=== PATIENT | male | born 1930 | race Caucasian/White ===

== ENCOUNTER → 2017-01-02 | Day surgery (SDC) | payer MEDICARE, OTHER ==
--- NOTE | 2016-12-07 15:11 | PCM.ANEPRE ---
Anesthesia Pre-Op Review Reason for Review: cardio hx Anesthesia Recommendations: Delay until Additional Data Obtain (Updated Trans- thoracic Echocardiogram) Additional Comments Consulted for chart review related to proposed cystoscopy/TURP/Chokio injection. Pt has ICD 2* 35% EF (2014 TTE) with hx of adm 2* CHF exac. Multiple comorbidities include AF/Bifascicular block, Pulm HTN (Per Echo), MR/TR, COPD 2 * Lengthy ex-tobacco Hx, Obesity (high risk STOP-BANG), Anesthetic record reviewed from 2013 CLARIBEL demonstrates patient tolerated sedative well (130mg propofol, 50 fentanyl, 1 Smita). This patient was unavailable for clinical assessment, but these aged records (> 2y old) illustrate Pt to have severe but stable disease. It would be reasonable to proceed if able to rule out functional decline, but in absence of ability to personally evaluate patient, I've requested an updated TTE to demonstrate objective function. If this study demonstrates stable disease, Pt could be considered a high risk candidate for an intermediate risk procedure. Typically, this procedure would be considered low risk, but TURP potential for fluid volume and electrolyte alteration specifically applies to this patient's Hx. Patient should be instructed to hold his coumadin x5d, which should be confirmed prior to consideration of SAB, which appears otherwise optimal given the nature of the patient's valvular incompetence which should be clarified by a more recent study. Chart Reviewed by: Tino Rachel DO Dec 07, 2016 15:11
--- NOTE | 2016-12-28 15:43 | PCM.ANEPRE ---
Anesthesia Pre-Op Review Reason for Review: cardio hx Anesthesia Recommendations: Proceed with Procedure Chart Reviewed by: Nick Bach MD Dec 28, 2016 15:42
[~2017-01-02] VITALS: Ht 167.6 cm; Wt 93.9 kg
[2017-01-02] VITALS (11 sets, daily range): BP systolic 93–154; BP diastolic 46–98; PULSE 71–90; RESP 15–23; O2SAT 92–96
[~2017-01-02] MED LIST: ALBU8.5H2 INHALATION; CARV25TA2 PO; DOCU-41 PO; Dexamethasone 4 mg/mL Inj IVPUSH PRN; ENOX100D4 IM; EPHEDrine Sulfate 50 mg/mL Inj IVPUSH PRN; HYDROmorphone 1 mg/mL Inj IVPUSH PRN; Ketamine 10 mg/mL 20 mL Inj ONE; LAN125 PO; LISI2.5T PO; Lactated Ringer's 1,000 ML IV SCH; Lactated Ringer's 500 ML IV PRN; Levofloxacin 500 mg/100 mL D5W IV ONE; MULT-1018 PO; MetoCLOpramide 5 mg/mL 2 mL Inj IVPUSH PRN; Ondansetron 2 mg/mL 2 mL Inj IVPUSH PRN; Ondansetron 2 mg/mL 2 mL Inj ONE; Phenylephrine 10,000 mCg/mL Inj IVPUSH PRN; Phenylephrine/NS 100 mCg/mL 10 mL Syringe IVPUSH ONE; Propofol 10,000 mCg/mL 20 mL Inj ONE; TORS20TA3 PO; WARF5TAB7 PO; WARF7.5T4 PO; fentaNYL-PF 50 mCg/mL 2 mL Inj IVPUSH PRN; levoFLOXacin 500 mg/100 mL D5W Premix IV ONE
--- NOTE | 2017-01-02 08:29 | PCM.HPANE ---
Patient Data Surgeon Admitting Provider: Attending Provider:Sapna Mendez MD Primary Care Physician:Haile Solis MD Other Provider:Yola Terryingham Anesthesia Reason for Visit Lower Urinary Tract Symptoms Ht/WT & BMI Height (Feet): 5 Height (Inches): 7 Weight (Kilograms): 96.8 Body Mass Index 33.00 Allergies Coded Allergies: Penicillins (Verified Allergy, Severe, Anaphylaxis, 12/26/16) Past Anesthesia History Anesthesia History: Denies:: Abnormal Airway, Anesthesia Reactions, Difficult Intubation Diabetes History Hx Diabetes?: No MRSA MRSA: No Medications Hypertension Medication: Yes Home Meds Incl Beta Elyse: Yes Reported Medications Enoxaparin Sodium 100 Mg/1 Ml Syringe Im Bid #21 01/02/17 Warfarin Sodium 7.5 Mg Tablet7.5 Mg PO mondays 30 Days Ref 0 12/26/16 Torsemide 20 Mg [id number] Mg PO DAILY 30 Days Ref 0 12/26/16 Warfarin Sodium 5 Mg Tablet5 Mg PO DAILY 30 Days Ref 0 12/26/16 Albuterol HFA (Proair HFA)8.5 Gm Hfa.aer.ad2 Puffs INHALATION Q4H PRN For Shortness of Breath #1 INHALER 12/07/16 Lisinopril 2.5 Mg Tablet2.5 Mg PO BID 30 Days Ref 0 12/07/16 Digoxin (Lanoxin)0.125 Mg Tablet0.125 Mg PO DAILY 30 Days Ref 0 12/07/16 Docusate Sodium (Colace)100 Mg [id number] Mg PO BID PRN For Constipation Ref 0 12/07/16 Carvedilol 25 Mg [id number] Mg PO BID Ref 0 12/07/16 Discontinued Reported Medications Multivitamin (Multi Vitamin Daily)1 Each Tablet1 Each PO DAILY 30 Days Ref 0 12/07/16 History History of ENT Problems?: No HEENT History: Positive for:: Cataracts (alida surgery) Hearing Problem Denies:: Abnormal Airway Difficult Intubation Dysphagia Glaucoma Sinus Problem TMJ Denture Type: None Teeth Condition: Within Normal Limits Hx of Heart Problems?: Yes Cardiovascular History: Positive for:: AICD Cardiac Surgery (ICD placement) Congestive Heart Failure (Most recent echo: EF 15/20% hx pulmonary htn) Hypertension Irregular Heartbeat Denies:: Heart Murmur Pacemaker Peripheral Vascular Hx of Respiratory Problem?: Yes Respiratory History: Positive for:: Dyspnea Denies:: Asthma COPD Oxygen Administration Pneumonia Tuberculosis Use of C-PAP Machine (pt states "did not work") Use of Inhalers / NEBS Hx Neurologic Problems?: Yes Neurological History: Denies:: CVA Headaches Multiple Sclerosis Parkinson's Disease Seizures TIA Other Neurological Pertinent: prior hx of subdural hematoma- treated approx 10 years ago at [facility] Hx of GI Problems?: No Hx of Problems?: No Male Hx: Positive for:: Prostate Problems (current admission problem) Skin History: Denies:: History Skin Disorders? 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 Blood Transfusions (unsure of ) Denies:: Blood Transfuse Reaction Hx Diabetes: No Hx Alcohol Use: NoHx Substance Use: No Smoking Status: Former Smoker Have You Smoked inLast 12 mo: Yes (one year ) Stop/Bang Treated for Sleep Apnea?: No Do You Have a CPAP Machine?: No S-Snoring: Do You Snore Loudly: Yes T-Tired: feel tired, fatigued: Yes O-Obsered: Observed not breath: No P-Blood Pressure: treated: Yes B- Body Mass Index > 35 kg/m2: No A- Age over 50: Yes N- Neck Large Circumference: No G- Gender Male: Yes LEMUEL Total Score: 5 LEMUEL Risk Assessment: High Risk, =/>3 Yes LEMUEL Category 4 OutPt Procedure: Yes Risk Assessment Category Category 1A: Patient has history of documented sleep apnea, and HAS NOT received any narcotic, sedative or anesthesia administration during this stay. Category 1B: Patient has history of documented sleep apnea, and HAS received any narcotic , sedative or anesthesia administration during this stay Category 2: Patient has SUSPECTED Obstructive Sleep Apnea, and HAS received any narcotic , sedative or anesthesia administration during this stay. Category 3: Patient has SUSPECTED Obstructive Sleep Apnea and HAS NOT received narcotic, sedative or anesthesia administration during this stay. Category 4: Outpatient in Procedural Areas with known sleep apnea or who screen positive for High Risk via the STOP/BANG questionnaire. Exam Exam General Appearance: Alert, Oriented X3, Cooperative, No Acute Distress HEENT/AIRWAY: MP 2 Lungs: Clear to Auscultation, Normal Air Movement Heart: Exam Unremarkable, Regular Rate/Rhythm, No Murmurs/Rubs/Gallops Plan Impression Patient chart reviewed, patient interviewed and anesthestic plan with risks, benefits, and alternatives discussed, and informed consent obtained. ASA Physical Status: ASA3 Severe Disease (EF 35%, ICD, co morbidities) Anesthetic Plan: GA Bene/Risks/Altern/Consents: Yes HP Complete Prior to Induction: Yes Levy Ricketts MD Jan 02, 2017 08:29 Patient chart reviewed, patient interviewed and anesthestic plan with risks, benefits, and alternatives discussed, and informed consent obtained. ASA Physical Status: ASA3 Severe Disease (EF 35%, ICD, co morbidities) Anesthetic Plan: GA Bene/Risks/Altern/Consents: Yes HP Complete Prior to Induction: Yes Levy Ricketts MD Jan 02, 2017 08:29
[2017-01-02] MEDS: Lactated Ringer's 1,000 ML IV SCH ×2 (12:41→14:35)
[2017-01-02 13:55] LABS: INR 1.1 ratio
[2017-01-02] MEDS: HYDROcodone-APAP 5-325 mg Tablet PO PRN ×2 (16:05→17:01)
--- NOTE | 2017-01-02 16:48 | OP ---
[address] [address] OPERATIVE REPORT PATIENT: LEVON RANDLE : 1930 MR#: [id number] ADMIT: 01/02/2017 JOB ID: [id number] DATE OF SURGERY: 01/02/2017 SURGEON: Sapna Mendez MD TIRE RETREADER: None. PREOPERATIVE DIAGNOSIS(ES): Lower urinary tract symptoms. POSTOPERATIVE DIAGNOSIS(ES): Lower urinary tract symptoms. PROCEDURE PERFORMED: Cystoscopy and transurethral resection of prostate. FINDINGS: 1. Trabeculated bladder. 2. Orthotopic ureteral orifices. ANESTHESIA: General. ESTIMATED BLOOD LOSS: Less than 5 mL. DRAINS: An 18-Cypriot coude catheter to the bladder. SPECIMENS: Prostate chips. COMPLICATIONS: None. CONDITION: Stable. INDICATION FOR PROCEDURE: The patient is an 86-year-old gentleman with lower urinary tract symptoms. After considering options, he wished to undergo a transurethral resection of prostate. DESCRIPTION OF PROCEDURE: After informed consent was obtained, the patient was taken to the operating room. A time-out was performed identifying correct patient, surgical site, and procedure. General anesthesia was smoothly induced. He was given intravenous antibiotics just prior to the start of the procedure. He was placed in the lithotomy position and all pressure points were identified and appropriately padded. His genitals were then prepped and draped in the usual sterile fashion. His urethra was just a touch inadequate to accommodate the 26-Cypriot resectoscope, so [place] sounds were used to dilate just the meatus. There was scant bleeding with this maneuver. The urethra appeared normal after the dilation. The resectoscope was then replaced and advanced into the bladder. The bladder was systematically inspected. The findings were aforementioned. A 24-Cypriot loop was applied to the prostate with resection commencing in piecemeal fashion with the right lobe first, then the left lobe. The prostate chips were evacuated and passed off the table to Pathology. The bladder was inspected and ureteral orifices were left as undisturbed. The prostatic urethra demonstrated excellent hemostasis on repeated examination after irrigation and drainage. Instruments were then removed from the patients body and an 18-Cypriot Coude catheter was placed into the patient's bladder and insufflated with 10 mL of sterile water and set to dependent drainage. The patient appeared to tolerate the procedure well, without apparent of complication. The patient was reversed from general anesthesia and taken to the PACU in good stable condition. MARITZA
--- NOTE | 2017-01-03 07:08 | PCM.ANEP1 ---
Post Anesthesia PACU Phase 1 Assessment Anesthetic Administered: GA Level of Alertness: Awake, talking JOSEPH's with Equal Strength: Yes Pain: No Nausea or Vomiting: No CV Function & Hydration Stable: Yes Airway Device: none Oxygen Delivery: Nasal Cannula Lungs: Clear to Auscultation, Normal Air Movement Dermatome Level: Full Sensation PACU Phase 2 Assessment Complications: No Follow up Care: No Patient Instructions Provided: N/A Levy Ricketts MD Jan 03, 2017 07:08
--- NOTE | 2017-01-07 15:08 | PATH ---
SURGICAL PATHOLOGY Attending Physician:Sapna Mendez, CASE STATUS: Signed Out PATIENT NAME: LEVON RANDLE PID: [id number] : 1930 DATE COLLECTED:01/02/2017 23:42 SPECIMEN: Prostate, Chips CLINICAL HISTORY: LOWER URINARY TRACT SYMPTOMS 1). PROSTATE CHIPS FINAL DIAGNOSIS: Prostate, Transurethral Resection of Prostate: Benign prostatic tissue. ICD10: R30.0 GROSS DESCRIPTION: The specimen is received in one formalin filled container labeled with the patient's name, sublabeled "prostate chips" and consists of multiple portions of tissue which aggregate to 2.0 x 1.0 x 0.4 CM. The specimen weighs 1 g in total. Specimen is entirely submitted in 2 cassettes. 01/03/2017ID ICD-9 CODES: CPT CODES: 1: 07120 Electronically Signed Out Karel Kingsley MD, Ph.D. [facility] Pathology [facility] [address], [place] [address] Technical component performed at [facility], [address] [place] [address] Ave[address], [place], [address]
== END | disposition home or self-care (01) ==
LOC: SAS 12:11
PROVIDERS: ATTEND Urology
DX: N40.1 Benign prostatic hyperplasia with lower urinary tract symptoms (principal); R39.15 Urgency of urination; R35.0 Frequency of micturition; I10 Essential (primary) hypertension; I48.91 Unspecified atrial fibrillation; I27.2 Other secondary pulmonary hypertension; I34.0 Nonrheumatic mitral (valve) insufficiency; M19.90 Unspecified osteoarthritis, unspecified site; I50.22 Chronic systolic (congestive) heart failure; Z89.512 Acquired absence of left leg below knee; Z87.891 Personal history of nicotine dependence; Z79.01 Long term (current) use of anticoagulants; Z95.810 Presence of automatic (implantable) cardiac defibrillator; Z96.651 Presence of right artificial knee joint
CPT/HCPCS: 36415; 52601; 85610; 88305; J2370; J2405; J2704; J7120

== ENCOUNTER 2017-01-07 22:33 | Inpatient (IN) | payer MEDICARE, OTHER ==
[~2017-01-07] VITALS: Ht 167.6 cm; Wt 92.1 kg
[~2017-01-07 22:33] MED LIST changes: -Dexamethasone 4 mg/mL Inj IVPUSH PRN; -EPHEDrine Sulfate 50 mg/mL Inj IVPUSH PRN; -HYDROmorphone 1 mg/mL Inj IVPUSH PRN; -Ketamine 10 mg/mL 20 mL Inj ONE; -Lactated Ringer's 1,000 ML IV SCH; -Lactated Ringer's 500 ML IV PRN; -Levofloxacin 500 mg/100 mL D5W IV ONE; -MULT-1018 PO; -MetoCLOpramide 5 mg/mL 2 mL Inj IVPUSH PRN; -Ondansetron 2 mg/mL 2 mL Inj IVPUSH PRN; -Ondansetron 2 mg/mL 2 mL Inj ONE; -Phenylephrine 10,000 mCg/mL Inj IVPUSH PRN; -Phenylephrine/NS 100 mCg/mL 10 mL Syringe IVPUSH ONE; -Propofol 10,000 mCg/mL 20 mL Inj ONE; -fentaNYL-PF 50 mCg/mL 2 mL Inj IVPUSH PRN; -levoFLOXacin 500 mg/100 mL D5W Premix IV ONE
[2017-01-07 22:41] VITALS: BP 132/70; PULSE 106; RESP 20; O2SAT 97
--- NOTE | 2017-01-07 22:49 | ED.REPORT ---
HPI-Abd Pain M 40 and Over Date of Service Jan 07, 2017 ED Provider: Bruce Saeed MD Pt is a 86 y/o male with a history of CHF, afib, and hypertension on Warfarin who presents to the ED via EMS c/o inability to urinate onset 5 days ago. Pt had a Paez catheter placed after TURP on 01/02/17, and has had difficulty urinating ever since. He went to [facility], but was transferred to [facility] per [facility] surgeon request. Additional symptoms include abdominal pain, nausea, and decreased appetite. He denies fever, chills, cough, or diarrhea. Nursing Notes Stated Complaint: BLOCKED CATHETER Chief Complaint: Male Abdominal Pain Nursing Notes Reviewed: Yes Allergies: Coded Allergies: Penicillins (Verified Allergy, Severe, Anaphylaxis, 12/26/16) Scheduled Carvedilol (Carvedilol) 25 Mg Tablet 25 MG PO BID Digoxin (Lanoxin) 0.125 Mg Tablet 0.125 MG PO DAILY Enoxaparin Sodium (Enoxaparin Sodium) 100 Mg/1 Ml Syringe IM BID Lisinopril (Lisinopril) 2.5 Mg Tablet 2.5 MG PO BID Torsemide (Torsemide) 20 Mg Tablet 20 MG PO DAILY Warfarin Sodium (Warfarin Sodium) 5 Mg Tablet 5 MG PO DAILY Scheduled PRN Albuterol HFA (Proair HFA) 8.5 Gm Hfa.aer.ad 2 PUFFS INHALATION Q4H PRN PRN For Shortness of Breath Docusate Sodium (Colace) 100 Mg Capsule 100 MG PO BID PRN PRN For Constipation General Time Seen by MD: 22:49 Chief Complaint Unable to urinate Hx Obtained From: Patient Arrived By: Ambulance Sudden in Onset?: No Onset Occurred: 5 days ago Context of Onset: Recent surgery Symptom Duration: Constant Quality: Painful Severity: Current: Moderate Severity: Maximum: Moderate Recent Healthcare: Recent doctor visit, Recent hospitalization Similar Sx Previous: No Past Medical History Past Medical History Prostate ICD replacement Reports: Congestive heart failure, Hypertension Reports: Atrial fibrillation Past Surgical History Auto implanted cardiovert defibrillator Right knee replacement Cancer in left knee as a child, 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 Physical Exam Initial Vital Signs Vital Signs (First) Date Time Temp Pulse Resp B/P Pulse Ox O2 Delivery O2 Flow Rate FiO2 01/07/17 22:41 36.1 106 20 132/70 97 Room Air Initial VS: Reviewed Head / Eyes: Atraumatic, Normocephalic Neck: Supple, Full range of motion Extremities: Vascular intact, Neuro intact, No swelling, No tenderness Skin: Warm, Dry, No cyanosis Neurologic: Alert, Oriented, Nonfocal Psychiatric: Mood/affect normal, Behavior normal, Normal thought content General/Constitutional: Awake, Alert Appearance / Presentation: Positive: Pale Diaphoretic Respiratory / Chest: Atraumatic, Breath sounds NL, Breath sounds = bilat, No respiratory distress Cardiovascular: Heart rate NL, Heart sounds NL Heart Rate / Rhythm: Positive: Tachycardia Abdomen: Soft Distended abdomen High-pitched bowel sounds Tenderness away from bladder Back: Full range of motion, Non-tender Interpretation & Diagnostics Lab Results Interpretation Lab Results Interpretation: Labs obtained at [facility] prior to arrival here. CT Abd / Pelvis Interpretation Large blood clot in the urinary bladder. An underlying mass is not excluded. Cholelithiasis without signs of cholecystitis. Mildly dilated proximal CBD with questionable choledocholithiasis. Colonic diverticulosis without signs of diverticulitis. Study type: Abdominal CT IV contrast Interpretation / Wet Read by: Interpret - Radiologist Re-Eval/Medical Decision Med Decision/Clinical Course 86-year-old just four days post TURP, presents with bladder pain and decreased drainage from his Paez catheter. His Paez was removed. He is unable to urinate, and it was replaced. Bladder scan shows only seventy Abbott of urine, but CT scan shows a fairly large collection in the bladder consistent with a clot. A three-way Paez was placed and he is admitted now to the medicine service for further evaluation and management. Consult to Dr. Acosta. Source of Hx: Old records Time of Eval: 02:53 Re-Evaluation/Progress Note: Pt rechecked. He is now asking for nausea medications. Time of Eval: 04:12 Re-Evaluation/Progress Note: Pt rechecked. Discussed plan for admission. Pt understands and agrees with plan. All questions addressed. Consultation #1: Referral / Consult Name: Omar Avila MD Consulted With: Hospitalist Call Returned at: 04:23 [employer] Supervisor: Will see patient, Agrees with plan, Accepts admit Note: Discussed pt's case with hospitalist, Dr. Aivla. He accepts admission. Consultation #2: Referral / Consult Name: Cesar Acosta MD Consulted With: Urology Call Returned at: 06:17 [employer] Supervisor: Will see patient, Agrees with eval, Agrees with plan Note: Discussed pt's case with urologist, Dr. Acosta. Counseled Regarding: Diagnosis, Lab results, Need for admission Discharge & Departure Primary Impression: Bladder obstruction Additional Impressions: Bladder spasm Abdominal pain Abdominal location: unspecified location Qualified Code: R10.9 - Unspecified abdominal pain Blood clot in bladder Disposition: ADMITTED TO HOSPITAL Vital Signs - All Vital Signs Date Time Temp Pulse Resp B/P Pulse Ox O2 Delivery O2 Flow Rate FiO2 01/08/17 04:19 36.5 92 21 138/92 96 Room Air 01/08/17 02:15 36.6 96 20 137/88 97 Room Air 01/08/17 00:16 36.6 96 20 120/64 97 Room Air 01/07/17 22:41 36.1 106 20 132/70 97 Room Air )( All Prior VS Reviewed: Yes Condition: Stable Referrals: Haile Solis MD (PCP) Scribe Attestation Portions of this note were transcribed by Zahira Morgan. I, Dr. Saeed, personally performed the history, physical exam and medical decision-making; I reviewed and confirmed the accuracy of the information in the transcribed note. copies to: Haile Solis MD, Christopher W MD Jan 07, 2017 22:49 Zahira Morgan Jan 08, 2017 00:38
[2017-01-08] VITALS (9 sets, daily range): BP systolic 95–138; BP diastolic 58–92; PULSE 57–102; RESP 16–21; O2SAT 95–98
[2017-01-08] MEDS ORDERED: Lidocaine 2% 6mL Topical Jelly ONE (02:33)
[2017-01-08] MEDS ORDERED: Lidocaine 2% 6mL Topical Jelly TOPICAL ONE (02:55)
[2017-01-08] MEDS ORDERED: Ondansetron 2 mg/mL 2 mL Inj IVPUSH ONE (02:55)
[2017-01-08] MEDS ORDERED: HYDROmorphone 1 mg/mL Inj IVPUSH PRN (03:30)
[2017-01-08] MEDS ORDERED: Alum-Mag Hydrox-Simeth 30 mL Suspension PO PRN (04:25)
[2017-01-08] MEDS ORDERED: Polyethylene Glycol (PEG) 17 Gm Powder PO PRN (04:25)
[2017-01-08] MEDS: 0.9% Sodium Chloride 1,000 ML IV SCH ×2 (05:53→15:20)
--- NOTE | 2017-01-08 06:18 | NUR ---
Arrival to [facility] Pt arrives via gurney, transfers self to bed. Bloody drainage present around urethra. 3 way louise with irrigation running, appears clogged by blood clots. With intermittent flushing and withdrawing clots are broken loose and louise is patent at this time, irrigation infusing, and output is light pink colored. IVF started NS as ordered. Pt is cooperative and states comfortable, no chest pain or SOB although respirations appear dyspneic. Care continues
[2017-01-08] MEDS ORDERED: HYDROmorphone 0.5 mg/0.5 mL iSecure Syringe IVPUSH PRN ×2 (07:50→10:50)
[2017-01-08] MEDS ORDERED: Albuterol HFA 60 Puff 8 Gm Inhaler INHALATION PRN (07:55)
[2017-01-08] MEDS: Ondansetron 2 mg/mL 2 mL Inj IVPUSH PRN (08:39)
[2017-01-08 09:20] LABS: Mean Corpuscular Hemoglobin 30.6 pg (27.0-35.0); Mean Corpuscular Volume 90.1 fL (81-100)
--- NOTE | 2017-01-08 09:39 | PCM.HPSURG ---
Subjective Date of Service: Jan 08, 2017 Referring Provider: Admitting Physician: Omar Avila MD Primary Care Physician: Haile Solis MD Attending Physician: Brittany Uribe DO Chief Complaint Gross hematuria, clot retention. History of Present Illness Mr Jung is a very pleasant 86 M known to me for LUTS. He is s/p TURP 01/02/17. TURP was uneventful. He was taking Coumadin, and bridged on Lovenox, which he resumed the night of surgery. He had gross hematuria yesterday in urology clinic when he presented for voiding trial. He then had worsening problems and presented to ER. - CT demonstrated distended bladder and clot within the bladder. Presently, he feels nauseated but denies pain Allergy Allergies: Coded Allergies: Penicillins (Verified Allergy, Severe, Anaphylaxis, 12/26/16) Social History Hx Alcohol Use: Yes (no longer drinks ~1 year) Hx Substance Use: No PMH HEENT History History of ENT Problems?: Yes HEENT History: Positive for:: Cataracts (alida surgery) Hearing Problem Denies:: Abnormal Airway Difficult Intubation Dysphagia Sinus Problem TMJ Cardiovascular History History of Heart Problems?: Yes Cardiovascular History: Positive for:: AICD Cardiac Surgery (ICD placement) Congestive Heart Failure (Most recent echo: EF 15/20% hx pulmonary htn) Hypertension Irregular Heartbeat Denies:: Chest Pain Edema Heart Murmur Pacemaker Thrombophlebitis Respiratory History of Respiratory Problem: No Respiratory History: Denies:: Asthma COPD Chest Surgery Dyspnea Emphysema Hemoptysis Oxygen Administration Pneumonia Tuberculosis Use of C-PAP Machine (pt states "did not work") Neurological History Hx Neurologic Problems?: No Neurological History: Denies:: CVA Headaches Multiple Sclerosis Parkinson's Disease Seizures Gastrointestinal History HX of GI Problems?: No Gastrointestinal History: Denies:: Cirrhosis Diverticulitis Gastroesphageal Reflux Gastrointestinal Bleeding Heartburn Hepatitis Hiatal Hernia Rectal Bleeding Genitourinary History Hx of Gu Problems?: No Female/Male History Reproductive History Male: Positive for: Prostate Problems (current admission problem) Skin History Skin History: Denies:: History Skin Disorders? Pressure Ulcers Other Skin Pertinent History: redness on coccyx Musculoskeletal History Hx Musculoskeletal Problems?: Yes Musculoskeletal History: Positive for:: Back Injury (chronic back pain ) Joint Replacement (Rt knee replacement) Musculoskeletal Trauma (left leg artificial ) Denies:: Systemic Lupus Psycho Social History Hx of Psycho/Social Problems?: No Other History Hx Any Other Health Problems?: Yes Other History: Positive for:: Cancer (cancer of knee, left - removed when he was a child, skin cancer) Hospitalization (surguries) Denies:: Thyroid Disease Diabetes: No Social History Hx Alcohol Use: Yes (no longer drinks ~1 year)Hx Substance Use: No Smoking Status: Former Smoker H&P Surgical Exam Exam General: Alert, Cooperative Abdomen: Soft Extremities: Warm, Other (h/o LLE amputation above the knee) Neuro: Cranial Nerves 2-12 nl (though fairly hard of hearing) Assessment & Plan Assessment Gross hematuria s/p TURP Plan: He had a 3 way louise present upon my arrival with CBI running and jara colored output in tubing. I performed a bedside clot evacuation with NS. I evacuated a volume of clot fairly consistent with that demonstrated on CT - Clots were quite soft and amenable to gentle evacuation, which he tolerated well I evacuated his bladder until there was no further clot on several irrigations/ aspirations - I monitored his CBI for several minutes after the clot evac - On a moderate paced drip, he was light pink I have spoke with his nurse Pablo today, very much appreciate her diligent surveillance over the CBI - Instructions are to titrate to pink/clear I'm hopeful his CBI could be trialed off at some point tomorrow He would go home with his louise I recommend holding his anticoag (Lovenox and Coumadin) until his louise is removed, which I suspect will be next Saturday01/14/17, though his clinical course might dictate otherwise Of note, his Cr is 2.57 - As an outpt 12/20/16, his Cr was 1.1 with eGFR >60 - It's unclear the source of his elevated Cr; if this was obstructive, it should resolve fairly quickly I would not check serial HH at this point - His blood loss is minimal presently and should improve off anticoagulation I very much appreciate Dr Uribe care of Mr Fabiana Mendez,Sapna Cevallos MD Jan 08, 2017 09:38
--- NOTE | 2017-01-08 10:00 | PCM.HPMED ---
Subjective Date of Service Jan 08, 2017 Primary Provider: Admitting Physician: Omar Avila MD Primary Care Physician: Haile Solis MD Attending Physician: Brittany Uribe DO Admit Status: Direct Admit Chief Complaint: abdominal pain, hematuria History of Present Illness: This is a 86 yo plesanat gentleman with PMH of hypertension, history of smoking for more than 50 years, HfPEF, severe LV dysfunction most likely nonischemic cardiomyopathy, chronic A. fib, history of left atrial appendage clot which got resolved on subsequent CLARIBEL, status post BIV AICD by Dr. 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 He was seen at [facility] yesterday and was seen by Dr. Gupta. He recently underwent a TURP procedure on 01/02/[address] Cano and his coumadin was subsequently restarted with enoxaparin bridging. He had a CT scan abdominopelvic in [facility] that showed diverticulosis and cholelithiasis, and hematoma. His lab work showed MA=953 K=5.1 BUN 27 Cr 1.4 ( unknown baseline) WBC 12.9 GFR 51.5 INR 1.1. He was given IV ketorolac and morphine at OSH. A CT abdomino/pelvic performed at [facility] showed large blood clot in the urinary bladder, cholelithiasis, questionable cholelithiasis, diverticulosis. Review of next gen records from Dr. Cano's office shows an Echo from , 50-55% EF, Mild to moderate MR, AR, TR, 31 mmHg pulmonary pressures. Patient states he has just seen his digital sales director Dr. Villanueva and he was told he was doing well. He currently has no nausea or vomiting, no abdominal pain. Asking to eat something as his hungry. He does endorse some constipation. Denies shortness of breath, headaches, recent fevers and chills, recent weight gain or weight loss. Patient's daughter is present in the room and provided some of the history. She intends to send patient back to his independent living setting with home care help if possible Review of Systems: Complete review of systems performed, pertinent positives and negatives per history of present illness, all other systems reviewed and are negative. Allergies Coded Allergies: Penicillins (Verified Allergy, Severe, Anaphylaxis, 12/26/16) Home Medications Coreg, digoxin, enoxaparin, lisinopril, torsemide, Coumadin, albuterol, finasteride, Detrol PMH hypertension, history of smoking for more than 50 years, HfPEF, severe LV dysfunction most likely nonischemic cardiomyopathy, chronic A. fib, history of left atrial appendage clot which got resolved on subsequent CLARIBEL, status post BIV AICD by Dr. 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 Exam Vital Signs Vital Sign - Last Date Time Temp Pulse Resp B/P Pulse Ox O2 Delivery O2 Flow Rate FiO2 01/08/17 06:24 36.9 84 18 132/77 97 Room Air Intake and Output 01/07/17 01/07/17 01/08/17 Cumulative From/Thru 15:00 23:00 07:00 01/07/17 22:41 - 01/08/17 06:24 Intake Total 200 ml 200 ml Output Total 950 ml 950 ml Balance -750 ml -750 ml Intake Oral 200 ml 200 ml Output Urine Total 950 ml 950 ml Bladder Scan Volume Amount 69 mLs # Bowel Movements 0 0 Exam General: No acute distress, elderly man, appropriately interactive, hard of hearing HEENT: Normocephalic, atraumatic. External ears without defect. Pupils equal, round, and reactive to light and accommodation. Anicteric sclerae, moist conjunctivae, and no lid lag. Oropharynx free of erythema and cobble stoning with moist mucosa. Neck: Supple with full range of motion. No jugular venous distension. No bruits. No lymphadenopathy or thyromegaly. Cardiovascular: Regular rate and rhythm with systolic murmur, no rubs, or gallops appreciated Pulmonary: Clear to auscultation bilaterally with no crackles, wheezes, or rhonchi. Normal respiratory effort with no use of accessory muscles. Abdomen: Bowel tones present. Soft, non-tender diffusely, nondistended. No hepatosplenomegaly or masses appreciated. Extremities: No clubbing, cyanosis, edema, or lymphadenopathy appreciated. Missing left lower leg Skin: Normal temperature, turgor, and texture; no rash, ulcers, or subcutaneous nodules appreciated. Neurological: Cranial nerves grossly intact. Normal muscle strength, tone, and bulk. Reflexes, coordination, and sensory function within normal limits. No known gait impairment. Hard of hearing Psychiatric: Normal mood and affect. Alert and oriented to person, place, and time. : Patient has a TV poorly with irrigation. Minimal blood present from urologists blood clots draining procedure Lab and Diagnostics X-Rays, CTs and MRIs PROCEDURE: CT ABDOMEN AND PELVIS WITH CONTRAST ([id number]) INDICATIONS: abd distension pain post turp IMPRESSION: 1. Hyperdense collection with air in the bladder as described above. Given recent history of TURP, overall appearance is suggestive of hematoma and postoperative air. Recommend continued interval followup to document resolution and exclude presence of underlying mass lesion. 2. Cholelithiasis without imaging evidence of cholecystitis. 3. Questionable appearance of iso-/hyperdensity within the distal common bile duct as above. Small stone cannot be excluded. It is noted that the common bile duct is mildly prominent measuring approximately 10 mm. MRCP may be obtained as clinically indicated. 4. Diverticulosis. Dictated by: Jadyn Knox M.D. on 01/08/2017 at 11:28 Approved by: Jadyn Knox M.D. on 01/08/2017 at 11:50 Assessment & Plan Nick is a 86-year-old white male past medical history of atrial fibrillation for which she was on Coumadin, SDH, hypertension, HFPEF, AICD placement is presenting after suffering from inability to urinate as a transfer from [facility]. #Bladder obstruction status post blood clot aspiration , resolved -- Dr. Cano was in the room draining the clot by aspirating the blood clot and irrigation. -- She does not want any anticoagulation until patient follows up with her next Saturday for uterine catheter removal -- Patient has undergone TURP on 01/02/2017 and she feels that his procedure went well. -- Continue pain control as needed #Abdominal pain resolved on admission -- Patient did not have abdominal pain on physical examination #Hyponatremia present on admission active -- Ordered urine osmolality, serum osmolality, urine sodium, TSH, serum cortisol levels to determine the etiology -- However urine test was not have been accurate as patient has been irrigated with NSS -- Every 2 hours sodium levels are monitored -- Nephrology is consulted due to diluted urine issue, we appreciate their recommendations #Acute kidney injury present on admission active -- Likely due to bladder obstruction vs home medications torsemide, lisinopril , ketorolac at OSH, possible dehydration from before causing prerenal azotemia -- There was no lab work this a.m., ordered in the room, showed a creatinine of 2.57 elevated from his outside hospital lab value of 1.4 -- Requested PCP records from Dr. Irma Reynoso to check baseline -- Uric acid, phosphorus, mag labs ordered -- Kidney ultrasound is ordered -- Nephrology is consulted due to diluted urine issue, we appreciate their recommendations #Atrial fibrillation chronic presumed stable -- Discontinued patient's at home and doxepin and Coumadin. -- Dr. Cano recommends holding all anticoagulation till she sees her for f/ u -- Continue telemonitoring #constipation, present on admission ongoing -- Senna, MiraLAX when necessary -- Consider mag citrate versus enema versus Dulcolax in the a.m. if he has no BM #Chronic ischemic cardiomyopathy active -- Continue home medications CODE STATUS: Patient states he is a full code ADM: Daughter Patient is admitted under Inpatient status with expected length of stay greater than 2 midnights due to severity of presenting symptoms, risk of adverse event, and complexity of treatment plan. Pain Evaluation: Adequate Pain Control Resuscitation Status: CPR: Attempt Resuscitation (daughter is ADM) Time spent 45 min Brittany Uribe DO Jan 08, 2017 07:40
[2017-01-08] MEDS: Tolterodine ER 4 mg ER24 Capsule PO SCH (11:22)
--- NOTE | 2017-01-08 11:52 | DRSVH ---
PROCEDURE: CT ABDOMEN AND PELVIS WITH CONTRAST ([id number]) INDICATIONS: abd distension pain post turp TECHNIQUE: After the administration of intravenous contrast, 5 mm thick sections acquired from the diaphragm to the symphysis. 5 mm coronal and sagittal reformats were acquired. For radiation dose reduction, the following was used: automated exposure control, adjustment of mA and/or kV according to patient siz e. COMPARISON: [facility], CT, IVP (ABD & PEL WWO CONTRAST), 10/08/2016, 9:32. FINDINGS: Image quality: Excellent. ABDOMEN: Lung bases: Lung bases are clear. Heart size is normal. Solid organs: Liver and spleen are normal in size and enhancement. Gallbladder demonstrates depende nt calcifications without wall thickening. There is noted to be an approximate 3 mm focus of iso-/hy perdensity within the distal common bile duct seen on series 2 image 36. There is mild prominence of the extrahepatic bile duct measuring approximately 10 mm. Pancreas enhances normally. No adrenal nod ules. Kidneys demonstrate normal size and enhancement, without hydronephrosis. Bilateral renal cyst s are present. Peritoneum and bowel: Bowel loops demonstrate normal wall thickness and caliber. No free fluid or a ir. Significant colonic diverticula are present without associated inflammatory change. Nodes and vessels: No retroperitoneal or mesenteric adenopathy by size criteria. Aorta and inferior vena cava are normal in size. 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 Miscellaneous: No ventral hernias. PELVIS: Genitourinary: Bladder wall thickness is normal. There is an approximate 7.0 cm AP by 6.6 cm transv erse hyperdense mass within the bladder, Hounsfield units measuring 57. Paez catheter is also in manasa ce. Small areas of air are also identified within the hyperdense collection. Non-dependent bladder ai r is also identified. Miscellaneous: Bilateral fat containing inguinal hernias are present. Bones: No suspicious bony lesions. No vertebral body compression fractures. IMPRESSION: 1. Hyperdense collection with air in the bladder as described above. Given recent history of TURP, ov erall appearance is suggestive of hematoma and postoperative air. Recommend continued interval follow up to document resolution and exclude presence of underlying mass lesion. 2. Cholelithiasis without imaging evidence of cholecystitis. 3. Questionable appearance of iso-/hyperdensity within the distal common bile duct as above. Small st one cannot be excluded. It is noted that the common bile duct is mildly prominent measuring approxima tely 10 mm. MRCP may be obtained as clinically indicated. 4. Diverticulosis. Dictated by: Jadyn Knox M.D. on 01/08/2017 at 11:28 Approved by: Jadyn Knox M.D. on 01/08/2017 at 11:50
--- NOTE | 2017-01-08 15:31 | NUR ---
CBI continues to run on light drip with light pink-clear urine, only very few small clots were noted in urine output over shift. Patient tolerating CBI well. Urine was not sent for osmolality and random sodium tests due to CBI running and results would be skewed. Spoke with Dr. Uribe regarding this. Patient is alert and oriented but can be confused about certain things regarding hospital course. Spoke to patient about why he was still admitted and the current plan. He acknowledges this and then minutes later tells family on the phone, 'I don't know why i'm still here.'' Continuing to reorient patient. Serum sodium levels being checked Q2H. Continue to monitor.
--- NOTE | 2017-01-08 16:06 | NUR ---
Social Work: Initial Assessment/Readiness for D/C/Multidisciplinary Rounds D: EMR reviewed. Please see Initial Assessment linked to this note for more information. Pt is a 86 year old male admitted [place] for bladder obstruction per H&P. Pt's insurance is Medicare and [employer]. PCP is Haile Solis MD. Pt discussed in multidisciplinary rounds, pt is s/p TURP. Pt is likely to d/c home with louise. No social work needs identified, no MD orders received. SW met with pt and son Nick Jung Jr at bedside to conduct initial assessment. Pt was confused, is under the impression that he is being held against his will by his children at the hospital. Is eager to return home. Was busy making calls during this entire assessment, despite attempts to reengage patient. Pt's son reports that this is not pt's baseline. RN and MD is aware as well. Pt's son states that father has no cognitive impairment, none is documented per brief chart review. SW explained role and wrote phone number on white board. SW provided [facility] Discharge Planning Checklist and encouraged pt to contact SW for any discharge planning questions. Pt's designated d/c planning contact is son Nick Jung [phone] or daughter Araceli [phone]. Pt lives at home in [place] with a live-in attendant. Pt's attendant assists with personal hygiene, meals, medications, housekeeping, and transportation. Pt is not independent with ADLs at baseline. Pt also has a nurse come twice daily to maintain pt's catheter. This is a privately paid nurse. Pt uses a cane or crutches at baseline. 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 Pt does not drive. Pt has no HH or SNF history. Pt has no VA benefits, but does have LTC benefits. Pt has no DPOA on file, SW requested copy of pt's DPOA. Son agreeable and will contact pt's other daughter Annabelle who is likely POA. Pt is likely to d/c home with son to transport via POV. Home nurse will likely resume catheter care until it's removal as an outpt. SW will continue to follow for needs. A: Pt who is dependent at baseline and does not have the capacity for self-care given his live-in attendant. P: Pt anticipated to discharge home with son to transport via POV, likely resume home nurse for catheter care until it's removal as an outpt. No SW needs identified, no MD orders received at this time. SW will continue to follow for needs until time of discharge. AVILA Resendiz Addendum: 01/08/17 at 1613 by BETZY RICHARD Amended: Links added.
[2017-01-08 17:57] LABS: Magnesium 1.7 mg/dL (1.6-2.6); Phosphorus 4.3 mg/dL (2.5-4.9)
--- NOTE | 2017-01-08 18:07 | DRSVH ---
PROCEDURE: US RENAL SONOGRAM INDICATIONS: acute renal failure TECHNIQUE: Real-time scanning was performed of the kidneys and bladder, with image documentation. COMPARISON: None. FINDINGS: Kidneys: Kidneys are normal in size. Right kidney measures 12.0 cm long; left kidney measures 11.8 cm long. Right renal cortical thickness is 0.8 cm; left renal cortical thickness is 1.0 cm. Renal c ortical echotexture is normal. No hydronephrosis or nephrolithiasis. No suspicious solid mass lesio ns. There are bilateral renal cysts. The largest right renal cyst measures 5.6 cm in diameter and th e largest left renal cyst measures 6.5 cm in diameter. Bladder: The bladder is decompressed and a Paez catheter is present. Neither ureteral jet was visua lized. Miscellaneous: No free pelvic fluid. IMPRESSION: 1. No hydronephrosis. 2. Bilateral renal cysts. 3. Right cortical thinning suggesting medical renal disease. Dictated by: Amanda Mcgovern M.D. on 01/08/2017 at 18:02 Approved by: Amanda Mcgovern M.D. on 01/08/2017 at 18:05
--- NOTE | 2017-01-08 19:12 | CONS ---
[address] [address] CONSULTATION REPORT PATIENT: LEVON RANDLE : 1930 MR#: [id number] ADMIT: 01/08/2017 JOB ID: [id number] DATE OF SERVICE: REQUESTING PHYSICIAN: Dr. Uribe. REASON FOR CONSULTATION: Management of acute kidney injury. CHIEF COMPLAINT: Gross hematuria and abdominal distention. PRESENT ILLNESS: This is an 86-year-old, male with significant past medical history of chronic atrial fibrillation, heart failure with reduced ejection fraction, last echocardiogram in November with ejection fraction of 50% to 55%, bifascicular block, status post bi-V AICD, hypertension, who was transferred from [facility] due to hematuria. The patient underwent TURP by Dr. Mendez on January 02, 2017. The procedure was uneventful. He resumed Coumadin and Lovenox on the night of the surgery. Patient came to the Urology Clinic yesterday, January 07, 2017. Paez catheter was removed. Gross hematuria noted in the clinic. He was also told to hold Coumadin and Lovenox for two days. Unfortunately symptoms persisted; therefore, he came to the [facility] for further investigation. He is also complaining of abdominal pain and difficulty urinating. CT scan was done at the [facility] on January 07. Showed distended bladder with a hyperdense mass, finding suggestive of hematoma. Also found to have diverticulosis and cholelithiasis. His initial BMP revealed creatinine of 1.4, BUN of 27, sodium of 128. Potassium 5.1. A 24-[place] Paez catheter was placed with 200 mL urine. The patient also received IV Ketoralac 30 mg and morphine 4 mg while he was at the [facility]. The patient was seen by Dr. Mendez today. She performed a bedside clot evacuation with normal saline and he was placed with continuous bladder irrigation. His initial serum creatinine was 2.57, sodium of 126. His lowest blood pressure was 95/58. During my visit at the moment, he is comfortable. He has no pain. He has watermelon-like color urine which has no clots noted in the in the Paez catheter. He has no fever, no chills. No chest pain. No shortness of breath at the moment. Of note, he has been taking lisinopril, torsemide, warfarin, digoxin, carvedilol, albuterol. PAST MEDICAL HISTORY: 1. Hypertension. 2. CHF. Recent ejection fraction was 50% to 55% in November 2016. Prior to that his ejection fraction was 35% to 40% based on echocardiogram done in September 2014. 3. Bifascicular block. 4. Cardiomyopathy. 5. Status post bi-genevieve AICD. 6. Left leg cancer status post left above-knee amputation. 7. Chronic atrial fibrillation. 8. Pulmonary hypertension. 9. Mitral regurgitation, tricuspid regurgitation. PAST SURGICAL HISTORY: 1. Status post left above-knee amputation. 2. TURP. 3. Status post bi-genevieve AICD. SOCIAL HISTORY: He is a former smoker. FAMILY HISTORY: No kidney disease in the family. ALLERGIES: PENICILLIN. REVIEW OF SYSTEMS: Fourteen-point review of system was performed. MEDICATIONS: Warfarin, torsemide, lisinopril, Lovenox, Colace, digoxin, carvedilol, and albuterol. PHYSICAL EXAMINATION: Vitals: Temperature 36.1, pulse 18, blood pressure 120/66, O2 sat 95% on room air. General appearance: Awake, alert, oriented x3. No acute distress. HEENT: No pallor. No jaundice. No JVD. No lymphadenopathy. No thyroid enlargement. Heart: Regular rhythm. Normal S1, S2. Soft systolic murmur noted. Lungs: Occasional wheezing bilaterally. No rhonchi. Good air entry bilaterally. Abdomen: Soft, obese, active bowel sounds. Bruises noted on the abdominal wall. Extremities: No edema, cyanosis, or clubbing of fingers. Status post left above-knee amputation. LABORATORY: Sodium 126, potassium 4.9, chloride 88, bicarb 22, BUN 37, creatinine 2.57. ASSESSMENT: 1. Acute kidney injury. 2. Gross hematuria. Status post bedside clot evacuation, now on continuous bladder irrigation. 3. Status post transurethral resection of prostate on January 02, 2017. 4. Chronic atrial fibrillation. 5. Heart failure, reduced ejection fraction, improved ejection fraction based on echocardiogram in November 2016. 6. Hypertension. 7. Status post bi-ventricular automatic implantable cardioverter-defibrillator. ASSESSMENT: The etiology of acute kidney injury is rather multifactorial including urinary retention, IV Ketoralac, lisinopril. The plan is to continue CBI. I will decrease normal saline to 80 cc/hour and discontinue in the morning to prevent fluid overload in the setting off history of heart failure. The patient has hyponatremia likely due to renal insufficiency and NSAIDs. Will continue to monitor and will put patient on low-salt diet. Will repeat chest x-ray and check the BNP. There is no indication for urgent dialysis. Thank you for allowing me to participate in the care of your patient. We will monitor along with you. JOANNED
--- NOTE | 2017-01-08 19:29 | DRSVH ---
PROCEDURE: X-RAY CHEST ONE VIEW, PORTABLE ([id number]) INDICATIONS: history of congestive heart failure TECHNIQUE: One view of the chest was acquired. COMPARISON: [facility], , CHEST 2VW, 03/10/2014, 8:16. FINDINGS: Surgical changes and devices: Cardiac defibrillator is unchanged. Lungs and pleura: Low lung volumes. No pleural effusions or pneumothorax. Lungs are clear. Mediastinum: Mediastinal contours appear normal. Heart size is normal. There is moderate gaseous d istention of the stomach. Bones and chest wall: No suspicious bony lesions. Overlying soft tissues appear unremarkable. IMPRESSION: Low lung volumes and moderate gaseous distention of the stomach. No acute cardiopulmonary findings. Dictated by: Amanda Mcgovern M.D. on 01/08/2017 at 19:27 Approved by: Amanda Mcgovern M.D. on 01/08/2017 at 19:27
[2017-01-09] VITALS (8 sets, daily range): BP systolic 95–147; BP diastolic 60–81; PULSE 74–100; RESP 18–24; O2SAT 93–94
[2017-01-09] MEDS: 0.9% Sodium Chloride 1,000 ML IV SCH ×2 (02:37→15:33)
[2017-01-09] MEDS: Ondansetron 2 mg/mL 2 mL Inj IVPUSH PRN ×3 (02:41→11:54)
--- NOTE | 2017-01-09 04:10 | NUR ---
Paez Patient complains of intermittent "pinching" feeling where catheter inserts, repositioned patient and pinching resolved. Paez irrigating continuously draining faint pink, no clots observed. Titrating as color lightens. No other complaints of pain, will continue to monitor hourly.
--- NOTE | 2017-01-09 07:43 | PCM.PNSURG ---
Subjective Date of Service: Jan 09, 2017 Date of Service: Jan 09, 2017 Visit Information: Reason for Visit Bladder Obstruction Clot In Bladder Surgery/Surgery Date Post-Op Day # Date of Admission: Jan 08, 2017 at 04:49 Hospital Day # 2 Subjective: Mr Jung states "my stomach is upset" and wishes to eat toast with hot milk, as this typically helps. Otherwise, he denies any pain. He has no other complaints. Gastrointestinal: Good Appetite Pain Management: PO Objective Vital Sign- Last 8 Hours Date Time Temp Pulse Resp B/P Pulse Ox O2 Delivery O2 Flow Rate FiO2 01/09/17 04:23 36.8 100 18 117/66 94 Room Air 01/09/17 00:34 36.4 90 18 95/60 94 Room Air Intake and Output- Last 8 Hour 01/09/17 Cumulative From/Thru 07:00 01/07/17 22:41 - 01/09/17 06:19 Intake Total 1303 ml 3556 ml Output Total 1000 ml 3850 ml Balance 303 ml -294 ml Intake Oral 636 ml 1636 ml IV Total 667 ml 1920 ml Output Urine Total 1000 ml 3850 ml # Bowel Movements 0 Abdomen: Soft (obese, nontender. No SP fullness or TTP.) Catheters: 3 Way Irrigation (slow drip, clear in tubing (yellow with scan pink sediment)) Result Diagram: 01/08/17 17301/08/17 173 Assessment & Plan Impression Gross hematuria s/p TURP, due to initiation of anticoagulation (Lovenox, later Coumadin) Problems: Plan Labs are pending - Cr yesterday demonstrated ARF I spoke with Aster CANDELARIO about his CBI - I have turned it off - CBI should be restarted if urine in tubing becomes jara colored - Recommended q30 min checks for the first 2 hours or so I have taken the cath off the secure as it was tugging him - I have recommended a velcro secure to be used around the tubing From a urologic perspective, as along as his louise output (that in the tubing) remains clear/light pink, he could DC home, though I understand he may be held longer for medical reasons - He will DC home with the existing louise. For now, I plan to have it removed this coming Saturday. I would prefer, if possible, he be off anticoagulation until his louise is removed. Very much appreciate hospitalist team care of Mr Jung - Please, do not hesitate to contact me. I can be reached at my office [phone] Resuscitation Status: CPR: Attempt Resuscitation (daughter is ADM) Sapna Mendez MD Jan 09, 2017 07:43
[2017-01-09] MEDS: Tolterodine ER 4 mg ER24 Capsule PO SCH (08:34)
[2017-01-09] MEDS: Pantoprazole 20 mg ER24 Tablet PO SCH (10:08)
--- NOTE | 2017-01-09 10:51 | PCM.PNNEPH ---
Subjective Date of Service Jan 09, 2017 Subjective There was no acute issue overnight. He is comfortable at the moment. He has no chest pain or shortness of breath. Kidney function has started to improve. Exam Vital Signs Vital Sign - Last Date Time Temp Pulse Resp B/P Pulse Ox O2 Delivery O2 Flow Rate FiO2 01/09/17 08:31 36.7 86 18 147/81 94 Room Air Intake and Output 01/08/17 01/08/17 01/09/17 Cumulative From/Thru 15:00 23:00 07:00 01/07/17 22:41 - 01/09/17 06:19 Intake Total 2053 ml 1303 ml 3556 ml Output Total 1900 ml 1000 ml 3850 ml Balance 153 ml 303 ml -294 ml Intake Oral 800 ml 636 ml 1636 ml IV Total 1253 ml 667 ml 1920 ml Output Urine Total 1900 ml 1000 ml 3850 ml # Bowel Movements 0 Exam General appearance: Awake, alert, oriented x3. No acute distress. HEENT: No pallor. No jaundice. No JVD. No lymphadenopathy. No thyroid enlargement. Heart: Regular rhythm. Normal S1, S2. Soft systolic murmur noted. Lungs: Decreased breaths sounds at the bases, no wheezing or rhonchi. Abdomen: Soft, obese, active bowel sounds. Bruises noted on the abdominal wall. Extremities: No edema, cyanosis, or clubbing of fingers. Status post left above-knee amputation. : CBI, watermelon colored urine, no clots. Lab and Diagnostics Result Diagram: 01/08/17 1730 01/09/17 0630 X-Rays, CTs and MRIs PROCEDURE: CT ABDOMEN AND PELVIS WITH CONTRAST (PNL-7102) INDICATIONS: abd distension pain post turp IMPRESSION: 1. Hyperdense collection with air in the bladder as described above. Given recent history of TURP, overall appearance is suggestive of hematoma and postoperative air. Recommend continued interval followup to document resolution and exclude presence of underlying mass lesion. 2. Cholelithiasis without imaging evidence of cholecystitis. 3. Questionable appearance of iso-/hyperdensity within the distal common bile duct as above. Small stone cannot be excluded. It is noted that the common bile duct is mildly prominent measuring approximately 10 mm. MRCP may be obtained as clinically indicated. 4. Diverticulosis. Dictated by: Jadyn Knox M.D. on 01/08/2017 at 11:28 Approved by: Jadyn Knox M.D. on 01/08/2017 at 11:50 Plan Impression 1. Acute kidney injury. - The etiology of acute kidney injury is rather multifactorial including urinary retention, IV Ketoralac, and lisinopril. 2. Hyponatremia, improving. 2. Gross hematuria. Status post bedside clot evacuation, now on continuous bladder irrigation. 3. Status post transurethral resection of prostate on January 02, 2017. 4. Chronic atrial fibrillation. 5. Heart failure, reduced ejection fraction, improved ejection fraction based on echocardiogram in November 2016, EF 50-55%. 6. Hypertension. 7. 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 Plan: Continue normal saline 80 mL per hour and discontinue when the current bag is finished. Hold anticoagulant. Hold lisinopril. Hold torsemide. Renally dose medications. Follow urology recommendation. Cherry Posadas MD Jan 09, 2017 10:51
--- NOTE | 2017-01-09 11:57 | PCM.PNMED ---
Subjective Date of Service Jan 09, 2017 Subjective Patient does feel somewhat constipated last bowel movement was several days ago. He does have some mild nausea. Exam Vital Signs Vital Sign - Last Date Time Temp Pulse Resp B/P Pulse Ox O2 Delivery O2 Flow Rate FiO2 01/09/17 08:31 36.7 86 18 147/81 94 Room Air Intake and Output 01/08/17 01/08/17 01/09/17 Cumulative From/Thru 15:00 23:00 07:00 01/07/17 22:41 - 01/09/17 06:19 Intake Total 2053 ml 1303 ml 3556 ml Output Total 1900 ml 1000 ml 3850 ml Balance 153 ml 303 ml -294 ml Intake Oral 800 ml 636 ml 1636 ml IV Total 1253 ml 667 ml 1920 ml Output Urine Total 1900 ml 1000 ml 3850 ml # Bowel Movements 0 Exam Constitutional: Elderly male in no acute distress Head: Normocephalic atraumatic Chest: Clear to auscultation Cor: Regular rate and rhythm S1-S2 Abdomen: Soft nontender bowel sounds present Extremities: No pedal edema Neuro: Alert and oriented 3, motor strength is intact bilaterally IVs and Medications Medications Reviewed: Medications were reviewed in detail Lab and Diagnostics Laboratory Tests 72 Hours Test 01/08/17 09:00 01/08/17 12:11 01/08/17 12:13 01/08/17 13:25 White Blood Count 10.8th/mm3 (3.8-10.1) Red Blood Count 3.85mil/mm3 (4.40-5.80) Hemoglobin 11.8g/dL (13.8-17.2) 11.1g/dL (13.8-17.2) Hematocrit 34.7% (41.0-50.0) 33.1% (41.0-50.0) Mean Corpuscular Volume 90.1fL (81-100) Mean Corpuscular Hemoglobin 30.6pg (27.0-35.0) Mean Corpuscular Hemoglobin Concent 34.0% (32.0-37.0) Red Cell Distribution Width 14.6% (12.3-15.4) Platelet Count 221bil/L (150-400) Sodium Level 126mEq/L (134-144) 124mEq/L (134-144) 125mEq/L (134-144) Potassium Level 4.9mEq/L (3.5-5.2) Chloride Level 88mEq/L (97-108) Carbon Dioxide Level 22mmol/L (18-29) Blood Urea Nitrogen 37mg/dL (8-27) Creatinine 2.57mg/dL (0.76-1.27) Estimat Glomerular Filtration Rate 25mL/min (>59) Glucose Level 127mg/dL (60-99) Calcium Level 8.5mg/dL (8.5-10.1) Total Bilirubin 0.7mg/dL (0.0-1.2) Aspartate Amino Transf (AST/SGOT) 31U/L (0-50) Alanine Aminotransferase (ALT/SGPT) 31U/L (0-44) Alkaline Phosphatase 43U/L (25-160) Total Protein 6.9g/dL (6.4-8.4) Albumin 3.9g/dL (3.4-5.0) Lipase 44U/L (13-60) Osmolality 277 (275-300) Thyroid Stimulating Hormone (TSH) 1.910uIU/mL (0.450-4.500) Cortisol 12.3ug/dL (.) Test 01/08/17 15:48 01/08/17 17:30 01/09/17 06:30 Sodium Level 125mEq/L (134-144) 127mEq/L (134-144) 131mEq/L (134-144) Hemoglobin 11.0g/dL (13.8-17.2) Hematocrit 32.3% (41.0-50.0) Potassium Level 4.7mEq/L (3.5-5.2) 4.5mEq/L (3.5-5.2) Chloride Level 91mEq/L (97-108) 92mEq/L (97-108) Carbon Dioxide Level 21mmol/L (18-29) 23mmol/L (18-29) Blood Urea Nitrogen 38mg/dL (8-27) 36mg/dL (8-27) Creatinine 2.24mg/dL (0.76-1.27) 1.89mg/dL (0.76-1.27) Estimat Glomerular Filtration Rate 30mL/min (>59) 36mL/min (>59) Glucose Level 116mg/dL (60-99) 120mg/dL (60-99) Uric Acid 9.9mg/dL (2.6-7.2) Calcium Level 8.2mg/dL (8.5-10.1) 8.2mg/dL (8.5-10.1) Phosphorus Level 4.3mg/dL (2.5-4.9) Magnesium Level 1.7mg/dL (1.6-2.6) Result Diagram: 01/08/17 1730 01/09/17 0630 X-Rays, CTs and MRIs PROCEDURE: CT ABDOMEN AND PELVIS WITH CONTRAST ([id number]) INDICATIONS: abd distension pain post turp IMPRESSION: 1. Hyperdense collection with air in the bladder as described above. Given recent history of TURP, overall appearance is suggestive of hematoma and postoperative air. Recommend continued interval followup to document resolution and exclude presence of underlying mass lesion. 2. Cholelithiasis without imaging evidence of cholecystitis. 3. Questionable appearance of iso-/hyperdensity within the distal common bile duct as above. Small stone cannot be excluded. It is noted that the common bile duct is mildly prominent measuring approximately 10 mm. MRCP may be obtained as clinically indicated. 4. Diverticulosis. Dictated by: Jadyn Knox M.D. on 01/08/2017 at 11:28 Approved by: Jadyn Knox M.D. on 01/08/2017 at 11:50 PROCEDURE: US RENAL SONOGRAM INDICATIONS: acute renal failure TECHNIQUE: Real-time scanning was performed of the kidneys and bladder, with image documentation. COMPARISON: None. FINDINGS: Kidneys: Kidneys are normal in size. Right kidney measures 12.0 cm long; left kidney measures 11.8 cm long. Right renal cortical thickness is 0.8 cm; left renal cortical thickness is 1.0 cm. Renal cortical echotexture is normal. No hydronephrosis or nephrolithiasis. No suspicious solid mass lesions. There are bilateral renal cysts. The largest right renal cyst measures 5.6 cm in diameter and the largest left renal cyst measures 6.5 cm in diameter. Bladder: The bladder is decompressed and a Paez catheter is present. Neither ureteral jet was visualized. Miscellaneous: No free pelvic fluid. IMPRESSION: 1. No hydronephrosis. 2. Bilateral renal cysts. 3. Right cortical thinning suggesting medical renal disease. Dictated by: Amanda Mcgovern M.D. on 01/08/2017 at 18:02 Approved by: Amanda Mcgovern M.D. on 01/08/2017 at 18:05 Assessment & Plan Nick is a 86-year-old white male past medical history of atrial fibrillation for which she was on Coumadin, SDH, hypertension, HFPEF, AICD placement is presenting after suffering from inability to urinate as a transfer from [facility]. #Bladder obstruction status post blood clot aspiration , resolved -- Dr. Cano was in the room draining the clot by aspirating the blood clot and irrigation. -- She does not want any anticoagulation until patient follows up with her next Saturday for ureteral catheter removal -- Patient has undergone TURP on 01/02/2017 and she feels that his procedure went well. -- Continue pain control as needed #Abdominal pain resolved on admission -- Patient did not have abdominal pain on physical examination #Hyponatremia present on admission active -- Ordered urine osmolality, serum osmolality, urine sodium, TSH, serum cortisol levels to determine the etiology -- However urine test was not have been accurate as patient has been irrigated with NSS -- Nephrology is consulted due to diluted urine issue, we appreciate their recommendations -Improving #Acute kidney injury present on admission active -- Likely due to bladder obstruction vs home medications torsemide, lisinopril , ketorolac at OSH, possible dehydration from before causing prerenal azotemia -- There was no lab work this a.m., ordered in the room, showed a creatinine of 2.57 elevated from his outside hospital lab value of 1.4 -- Requested PCP records from Dr. Irma Reynoso to check baseline -- Uric acid, phosphorus, mag labs ordered -- Kidney ultrasound is ordered and no significant abnormalities seen -- Nephrology is consulted due to diluted urine issue, we appreciate their recommendations #Atrial fibrillation chronic presumed stable -- Discontinued patient's at home Coumadin -- Dr. Cano recommends holding all anticoagulation till she sees her for f/ u -- Continue telemonitoring #constipation, present on admission ongoing -- Senna, MiraLAX when necessary -- Add Colace twice a day -Encourage moving about #Chronic ischemic cardiomyopathy active -- Continue home medications -Per previous note patient had an echocardiogram which showed EF of 50-55% which was done 12/27/2016 with mild to moderate MR and TR 31 mmHg pulmonary pressures. CODE STATUS: Patient states he is a full code ADM: Daughter Patient is admitted under Inpatient status with expected length of stay greater than 2 midnights due to severity of presenting symptoms, risk of adverse event, and complexity of treatment plan. Pain Evaluation: Adequate Pain Control VTE Prophylaxis: SCDs Resuscitation Status: CPR: Attempt Resuscitation (daughter is ADM) Time spent 30 minutes Laya Truong MD Jan 09, 2017 11:57
--- NOTE | 2017-01-09 13:08 | NUR ---
GI/ Per Pt, Pt has not had a BM in 4 days. Miralax and prune juice given. Also encouraged pt to get oob and into the wheel chair or recliner. Pt had episode of Nausea with minimal emesis. Zofran given. MD notified and ordered stool softeners. CBI clamped per MD orders and Paez catheter is patent and draining to gravity. Urine is light pink/red in color. Will continue to monitor.
[2017-01-09] MEDS: Albuterol 2.5 mg/3 mL Inhalation Solution NEB PRN (13:29)
--- NOTE | 2017-01-09 16:34 | PCM.ADCARE ---
Advance Care Planning Note Purpose of Encounter: To understand patient's goals of care by discussing his current health, treatments and snf prognosis Parties in Attendance: Patient, patient's daughter, Dr. Rex Uribe Decisional Capacity: poor Subjective: I reviewed his current medical conditions hypertension, history of smoking for more than 50 years, HfPEF, severe LV dysfunction most likely nonischemic cardiomyopathy, chronic A. fib for which he was on coumadin, history of left atrial appendage clot which got resolved on subsequent CLARIBEL, status post BIV AICD by Dr. 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 and aggressive care including intubation and potential mechanical ventilation should he be unable to breath on his own; also discussed who would speak on his behalf should she be unable to do so and discussed what conversation he had had with her family so they understand his desires if such situation occurred now or in the future. Objective: Patient appears somewhat apprehensive to approach the subject. He is also very hard of hearing and did not quite like that the daughter was talking more. He is new to our care, hence his anxiety is understandable. Daughter is asking for us to continue the code discussions as the patient "does not quite understand these things". She feels patient can make his own decisions. Patient lives independently though he is handicapped, he has home care nursing and other help available. Daughter would like us to tell her if we feel he will not be able to manage himself. Plan: Physical Therapy can be ordered and patient can be evaluated to see if he has additional needs. His hospitalization is for bladder hematoma and renal failure , we will help him with goals of returning to his baseline. CODE STATUS: Full Code Daughter ADM Time Spent Adv.Care Planning: Total time spent [id number] and education directly related to advanced planning 30 min Adv. Care Plan Documenation: As above and in H&P Brittany Uribe DO Jan 09, 2017 02:09
--- NOTE | 2017-01-09 18:00 | NUR ---
Paez After pt got up and oob bed urine color changed from light pink/red to dark rust colored with some sediments. Paged MD and left message. Reported to [employer] shift lead RN.
--- NOTE | 2017-01-10 02:28 | NUR ---
FC/Activity FC patent and draining to gravity, irrigation has been clamped since day shift yesterday. Urine is changing to more of a brown from previous dark red. Continuing to monitor UO/color. Pt awoke a few times tonight needing to be reoriented to time/place/ and reason for being in the hospital. Pt RA mid 90's. No O2 at home. Pt was in chair at start of shift and was transferred 1PA to bed HS. 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 Pt has no c/o pain this shift. Continue with cares.
[2017-01-10] MEDS: 0.9% Sodium Chloride 1,000 ML IV SCH (03:00)
[2017-01-10 04:50] VITALS: BP 135/69; PULSE 79; RESP 20; O2SAT 94
[2017-01-10] MEDS: Ondansetron 2 mg/mL 2 mL Inj IVPUSH PRN (05:22)
--- NOTE | 2017-01-10 05:22 | NUR ---
Nausea Pt attempted to eat some bites of vanilla ice cream this am. Not able to tolerate. Started dry heaving and felt nauseated. Pt states "My sinuses are also draining". IV Zofran given at this time. No emesis. Continue to monitor.
[2017-01-10] MEDS ORDERED: Pantoprazole 20 mg ER24 Tablet PO SCH (07:30)
[2017-01-10 07:50] VITALS: PULSE 83; RESP 20; O2SAT 92
--- NOTE | 2017-01-10 08:30 | NUR ---
Paez Paez catheter draining to gravity. Urine dark red/rust in color. Some fine sediments and small clots noted. Erin CARLOS. Paez to stay clamped from CBI. Will continue to monitor urine output and color.
[2017-01-10 08:39] VITALS: BP 147/77; PULSE 80; RESP 18; O2SAT 96
[2017-01-10] MEDS: Tolterodine ER 4 mg ER24 Capsule PO SCH (08:46)
[2017-01-10] MEDS: Pantoprazole 20 mg ER24 Tablet PO SCH (08:47)
--- NOTE | 2017-01-10 11:57 | PCM.PNNEPH ---
Subjective Date of Service Jan 10, 2017 Subjective Dark red colored urine noted. No acute issue overnight. Serum creatinine continues to improve. Exam Vital Signs Vital Sign - Last Date Time Temp Pulse Resp B/P Pulse Ox O2 Delivery O2 Flow Rate FiO2 01/10/17 08:47 85 01/10/17 08:39 36.5 18 147/77 96 Room Air Intake and Output 01/09/17 01/09/17 01/10/17 Cumulative From/Thru 15:00 23:00 07:00 01/07/17 22:41 - 01/10/17 05:51 Intake Total 1994 ml 1390 ml 6940 ml Output Total 500 ml 1000 ml 5350 ml Balance 1494 ml 390 ml 1590 ml Intake Oral 800 ml 800 ml 3236 ml IV Total 1194 ml 590 ml 3704 ml Output Urine Total 500 ml 1000 ml 5350 ml # Bowel Movements 0 Exam General appearance: Awake, alert, oriented x3. No acute distress. HEENT: No pallor. No jaundice. No JVD. No lymphadenopathy. No thyroid enlargement. Heart: Regular rhythm. Normal S1, S2. Soft systolic murmur noted. Lungs: Decreased breaths sounds at the bases, no wheezing or rhonchi. Abdomen: Soft, obese, active bowel sounds. Bruises noted on the abdominal wall. Extremities: No edema, cyanosis, or clubbing of fingers. Status post left above-knee amputation. : CBI, dark red colored urine, no clots. Lab and Diagnostics Result Diagram: 01/08/17 1730 01/10/17 0540 X-Rays, CTs and MRIs PROCEDURE: CT ABDOMEN AND PELVIS WITH CONTRAST (PNL-7102) INDICATIONS: abd distension pain post turp IMPRESSION: 1. Hyperdense collection with air in the bladder as described above. Given recent history of TURP, overall appearance is suggestive of hematoma and postoperative air. Recommend continued interval followup to document resolution and exclude presence of underlying mass lesion. 2. Cholelithiasis without imaging evidence of cholecystitis. 3. Questionable appearance of iso-/hyperdensity within the distal common bile duct as above. Small stone cannot be excluded. It is noted that the common bile duct is mildly prominent measuring approximately 10 mm. MRCP may be obtained as clinically indicated. 4. Diverticulosis. Dictated by: Jadyn Knox M.D. on 01/08/2017 at 11:28 Approved by: Jadyn Knox M.D. on 01/08/2017 at 11:50 PROCEDURE: US RENAL SONOGRAM INDICATIONS: acute renal failure TECHNIQUE: Real-time scanning was performed of the kidneys and bladder, with image documentation. COMPARISON: None. FINDINGS: Kidneys: Kidneys are normal in size. Right kidney measures 12.0 cm long; left kidney measures 11.8 cm long. Right renal cortical thickness is 0.8 cm; left renal cortical thickness is 1.0 cm. Renal cortical echotexture is normal. No hydronephrosis or nephrolithiasis. No suspicious solid mass lesions. There are bilateral renal cysts. The largest right renal cyst measures 5.6 cm in diameter and the largest left renal cyst measures 6.5 cm in diameter. Bladder: The bladder is decompressed and a Paez catheter is present. Neither ureteral jet was visualized. Miscellaneous: No free pelvic fluid. IMPRESSION: 1. No hydronephrosis. 2. Bilateral renal cysts. 3. Right cortical thinning suggesting medical renal disease. Dictated by: Amanda Mcgovern M.D. on 01/08/2017 at 18:02 Approved by: Amanda Mcgovern M.D. on 01/08/2017 at 18:05 Plan Impression 1. Acute kidney injury. Improving. - The etiology of acute kidney injury is rather multifactorial including urinary retention, IV Ketoralac, and lisinopril. 2. Hyponatremia, improving. 2. Gross hematuria. Status post bedside clot evacuation, now on continuous bladder irrigation. 3. Status post transurethral resection of prostate on January 02, 2017. 4. Chronic atrial fibrillation. 5. Heart failure, reduced ejection fraction, improved ejection fraction based on echocardiogram in November 2016, EF 50-55%. 6. Hypertension. 7. 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 Plan: Hold anticoagulant. We will resume lisinopril and torsemide in am. Renally dose medications. Follow urology recommendation. Cherry Posadas MD Jan 10, 2017 11:57
[2017-01-10 12:29] VITALS: BP 136/79; PULSE 77; RESP 20; O2SAT 94
--- NOTE | 2017-01-10 12:49 | PCM.PNMED ---
Subjective Date of Service Jan 10, 2017 Subjective Patient still with some mild nausea. His appetite is a little bit better. He does have a pinkish urine in his Paez bag Exam Vital Signs Vital Sign - Last Date Time Temp Pulse Resp B/P Pulse Ox O2 Delivery O2 Flow Rate FiO2 01/10/17 12:29 36.5 77 20 136/79 94 Room Air Intake and Output 01/09/17 01/09/17 01/10/17 Cumulative From/Thru 15:00 23:00 07:00 01/07/17 22:41 - 01/10/17 05:51 Intake Total 1994 ml 1390 ml 6940 ml Output Total 500 ml 1000 ml 5350 ml Balance 1494 ml 390 ml 1590 ml Intake Oral 800 ml 800 ml 3236 ml IV Total 1194 ml 590 ml 3704 ml Output Urine Total 500 ml 1000 ml 5350 ml # Bowel Movements 0 Exam Constitutional: Elderly male in no acute distress Head: Normocephalic atraumatic Chest: Clear to auscultation Cor: Regular rate and rhythm S1-S2 Abdomen: Soft nontender bowel sounds present Extremities: No pedal edema Neuro: Alert and oriented 3, motor strength is intact bilaterally Lab and Diagnostics Laboratory Tests 72 Hours Test 01/08/17 09:00 01/08/17 12:11 01/08/17 12:13 01/08/17 13:25 White Blood Count 10.8th/mm3 (3.8-10.1) Red Blood Count 3.85mil/mm3 (4.40-5.80) Hemoglobin 11.8g/dL (13.8-17.2) 11.1g/dL (13.8-17.2) Hematocrit 34.7% (41.0-50.0) 33.1% (41.0-50.0) Mean Corpuscular Volume 90.1fL (81-100) Mean Corpuscular Hemoglobin 30.6pg (27.0-35.0) Mean Corpuscular Hemoglobin Concent 34.0% (32.0-37.0) Red Cell Distribution Width 14.6% (12.3-15.4) Platelet Count 221bil/L (150-400) Sodium Level 126mEq/L (134-144) 124mEq/L (134-144) 125mEq/L (134-144) Potassium Level 4.9mEq/L (3.5-5.2) Chloride Level 88mEq/L (97-108) Carbon Dioxide Level 22mmol/L (18-29) Blood Urea Nitrogen 37mg/dL (8-27) Creatinine 2.57mg/dL (0.76-1.27) Estimat Glomerular Filtration Rate 25mL/min (>59) Glucose Level 127mg/dL (60-99) Calcium Level 8.5mg/dL (8.5-10.1) Total Bilirubin 0.7mg/dL (0.0-1.2) Aspartate Amino Transf (AST/SGOT) 31U/L (0-50) Alanine Aminotransferase (ALT/SGPT) 31U/L (0-44) Alkaline Phosphatase 43U/L (25-160) Total Protein 6.9g/dL (6.4-8.4) Albumin 3.9g/dL (3.4-5.0) Lipase 44U/L (13-60) Osmolality 277 (275-300) Thyroid Stimulating Hormone (TSH) 1.910uIU/mL (0.450-4.500) Cortisol 12.3ug/dL (.) Test 01/08/17 15:48 01/08/17 17:30 01/09/17 06:30 01/10/17 05:40 Sodium Level 125mEq/L (134-144) 127mEq/L (134-144) 131mEq/L (134-144) 134mEq/L (134-144) Hemoglobin 11.0g/dL (13.8-17.2) Hematocrit 32.3% (41.0-50.0) Potassium Level 4.7mEq/L (3.5-5.2) 4.5mEq/L (3.5-5.2) 4.6mEq/L (3.5-5.2) Chloride Level 91mEq/L (97-108) 92mEq/L (97-108) 99mEq/L (97-108) Carbon Dioxide Level 21mmol/L (18-29) 23mmol/L (18-29) 22mmol/L (18-29) Blood Urea Nitrogen 38mg/dL (8-27) 36mg/dL (8-27) 23mg/dL (8-27) Creatinine 2.24mg/dL (0.76-1.27) 1.89mg/dL (0.76-1.27) 1.30mg/dL (0.76-1.27) Estimat Glomerular Filtration Rate 30mL/min (>59) 36mL/min (>59) 56mL/min (>59) Glucose Level 116mg/dL (60-99) 120mg/dL (60-99) 112mg/dL (60-99) Uric Acid 9.9mg/dL (2.6-7.2) Calcium Level 8.2mg/dL (8.5-10.1) 8.2mg/dL (8.5-10.1) 8.0mg/dL (8.5-10.1) Phosphorus Level 4.3mg/dL (2.5-4.9) Magnesium Level 1.7mg/dL (1.6-2.6) Total Bilirubin 0.5mg/dL (0.0-1.2) Aspartate Amino Transf (AST/SGOT) 18U/L (0-50) Alanine Aminotransferase (ALT/SGPT) 16U/L (0-44) Alkaline Phosphatase 36U/L (25-160) Total Protein 5.9g/dL (6.4-8.4) Albumin 3.4g/dL (3.4-5.0) Result Diagram: 01/08/17 1730 01/10/17 0540 X-Rays, CTs and MRIs PROCEDURE: CT ABDOMEN AND PELVIS WITH CONTRAST (PNL-7102) INDICATIONS: abd distension pain post turp IMPRESSION: 1. Hyperdense collection with air in the bladder as described above. Given recent history of TURP, overall appearance is suggestive of hematoma and postoperative air. Recommend continued interval followup to document resolution and exclude presence of underlying mass lesion. 2. Cholelithiasis without imaging evidence of cholecystitis. 3. Questionable appearance of iso-/hyperdensity within the distal common bile duct as above. Small stone cannot be excluded. It is noted that the common bile duct is mildly prominent measuring approximately 10 mm. MRCP may be obtained as clinically indicated. 4. Diverticulosis. Dictated by: Jadyn Knox M.D. on 01/08/2017 at 11:28 Approved by: Jadyn Knox M.D. on 01/08/2017 at 11:50 PROCEDURE: US RENAL SONOGRAM INDICATIONS: acute renal failure TECHNIQUE: Real-time scanning was performed of the kidneys and bladder, with image documentation. COMPARISON: None. FINDINGS: Kidneys: Kidneys are normal in size. Right kidney measures 12.0 cm long; left kidney measures 11.8 cm long. Right renal cortical thickness is 0.8 cm; left renal cortical thickness is 1.0 cm. Renal cortical echotexture is normal. No hydronephrosis or nephrolithiasis. No suspicious solid mass lesions. There are bilateral renal cysts. The largest right renal cyst measures 5.6 cm in diameter and the largest left renal cyst measures 6.5 cm in diameter. Bladder: The bladder is decompressed and a Paez catheter is present. Neither ureteral jet was visualized. Miscellaneous: No free pelvic fluid. IMPRESSION: 1. No hydronephrosis. 2. Bilateral renal cysts. 3. Right cortical thinning suggesting medical renal disease. Dictated by: Amanda Mcgovern M.D. on 01/08/2017 at 18:02 Approved by: Amanda Mcgovern M.D. on 01/08/2017 at 18:05 Assessment & Plan Nick is a 86-year-old white male past medical history of atrial fibrillation for which she was on Coumadin, SDH, hypertension, HFPEF, AICD placement is presenting after suffering from inability to urinate as a transfer from [facility]. #Bladder obstruction status post blood clot aspiration , resolved -- Dr. Cano was in the room draining the clot by aspirating the blood clot and irrigation. -- She does not want any anticoagulation until patient follows up with her next Saturday for ureteral catheter removal -- Patient has undergone TURP on 01/02/2017 and she feels that his procedure went well. -- Continue pain control as needed #Abdominal pain resolved on admission -- Patient did not have abdominal pain on physical examination #Hyponatremia present on admission active -- Nephrology is consulted due to diluted urine issue, we appreciate their recommendations -Improving #Acute kidney injury present on admission active -- Likely due to bladder obstruction vs home medications torsemide, lisinopril , ketorolac at OSH, possible dehydration from before causing prerenal azotemia --- Kidney ultrasound is ordered and no significant abnormalities seen -- Nephrology is consulted , we appreciate their recommendations #Nausea, acute, persistent, present on admission -We will go ahead and check CT of abdomen without contrast to further evaluate #Atrial fibrillation chronic presumed stable -- Discontinued patient's at home Coumadin -- Dr. Cano recommends holding all anticoagulation till she sees her for f/ u #constipation, present on admission ongoing -- Senna, MiraLAX when necessary -- Add Colace twice a day -Encourage moving about #Chronic ischemic cardiomyopathy active -- Continue home medications -Per previous note patient had an echocardiogram which showed EF of 50-55% which was done 12/27/2016 with mild to moderate MR and TR 31 mmHg pulmonary pressures. CODE STATUS: Patient states he is a full code ADM: Daughter Patient is admitted under Inpatient status with expected length of stay greater than 2 midnights due to severity of presenting symptoms, risk of adverse event, and complexity of treatment plan. VTE Prophylaxis: SCDs Resuscitation Status: CPR: Attempt Resuscitation (daughter is ADM) Time spent 30 minutes Laya Truong MD Jan 10, 2017 12:49
--- NOTE | 2017-01-10 16:14 | NUR ---
Nausea Pt having persistent nausea. Zofran helps for a while but nausea continually comes back. MD notified. CT ordered.
[2017-01-10 19:23] VITALS: BP 133/88; PULSE 68; RESP 18; O2SAT 92
--- NOTE | 2017-01-10 19:43 | DRSVH ---
PROCEDURE: CT ABDOMEN AND PELVIS WITHOUT CONTRAST ([id number]) INDICATIONS: perisitent nausea TECHNIQUE: Noncontrast 5 mm thick sections acquired from the diaphragms to the symphysis. 5 mm coronal and sagi ttal reformats were then performed. For radiation dose reduction, the following was used: automated exposure control, adjustment of mA and/or kV according to patient size. COMPARISON: [facility], CT, CT ABD PELVIS W CON, 01/08/2017, 1:43. FINDINGS: Image quality: Excellent. ABDOMEN: Lung bases: Lung bases are clear. Heart size is normal. Solid organs: Liver and spleen are normal in size. Gallbladder contains multiple small partially ca lcified gallstones, of a size that easily to transit into the cystic duct or common duct. Pancreas i s normal in contours but there is a new finding of mild edema in the retroperitoneal fat pancreatic h ead, inferiorly and adjacent to the proximal transverse duodenum. The descending duodenum shows a ne w finding of what appears to be mild soft tissue edema concentrically narrowing the duodenal lumen, a nd this is associated with fluid distention of the stomach. No adrenal nodules. Kidneys are normal in size, without hydronephrosis or nephrolithiasis. Multiple cysts are again seen involving the kidn eys bilaterally, including an ovoid hyperdense cyst at the upper border of the right kidney measuring up to 2.5 x 3.0 cm. Peritoneum and bowel: Unenhanced bowel loops demonstrate normal wall thickness and caliber. No free fluid or air. Nodes and vessels: No retroperitoneal or mesenteric adenopathy by size criteria. Aorta and inferior vena cava are normal in caliber. Miscellaneous: No ventral hernias. PELVIS: Genitourinary: Bladder wall thickness is likely normal but difficult to accurately assess due to Fol ey catheter fully drain the bladder lumen. Miscellaneous: No inguinal hernias or adenopathy. Note is made of extensive sigmoid diverticulosis but without acute diverticulitis at this time. There is a 2.2 cm area of aneurysmal dilatation of th e proximal right common iliac artery. Bones: No suspicious bony lesions. No vertebral body compression fractures. IMPRESSION: 1. Gastric distention by fluid. This is in the setting of what appears to be possible acute pancrea titis given the finding of edema adjacent to the pancreatic head in concentric narrowing of the duode nal lumen (descending duodenal lumen) in this patient who has multiple partially calcified gallstones of a small size that easily to transit through the cystic duct and into the common duct. 2. The contrast enhanced CT scanning from only 2 days ago did not show this pattern of retroperitone al edema, and at that time there was concern for a distal common duct calculus. Biliary pancreatitis would be suspected in this clinical circumstance. 3. 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 No aortic aneurysm is found . 4. Extensive sigmoid diverticulosis without acute diverticulitis. Paez catheter empties the bladde r lumen. Dictated by: Karthikeyan Macario M.D. on 01/10/2017 at 19:32 Approved by: Karthikeyan Macario M.D. on 01/10/2017 at 19:41
[2017-01-11 04:37] VITALS: BP 136/74; PULSE 79; RESP 18; O2SAT 93
--- NOTE | 2017-01-11 05:11 | NUR ---
Paez pt noted with dark red urine with small clots on f/c when IVF complete infusing. LN kept IVF TKO at 10cc/hr and repositioned f/c in meatus. Pt denies pain or discomfort and states "i'm comfortable. At this current moment, pt f/c is patent and draining clear urine. CBI remains clamped per orders. Care continues.
[2017-01-11 06:23] VITALS: PULSE 54; RESP 20; O2SAT 96
[2017-01-11] MEDS: Pantoprazole 20 mg ER24 Tablet PO SCH (08:27)
[2017-01-11] MEDS: Tolterodine ER 4 mg ER24 Capsule PO SCH (08:27)
--- NOTE | 2017-01-11 09:02 | PCM.PNSURG ---
Subjective Date of Service: Jan 11, 2017 Date of Service: Jan 11, 2017 Visit Information: Reason for Visit Bladder Obstruction Clot In Bladder Surgery/Surgery Date Post-Op Day # Date of Admission: Jan 08, 2017 at 04:49 Hospital Day # Subjective: Mr Jung is sleeping soundly. His louise is draining totally clear, light yellow urine from the tubing and in the bag. Objective Vital Sign- Last 8 Hours Date Time Temp Pulse Resp B/P Pulse Ox O2 Delivery O2 Flow Rate FiO2 01/11/17 06:23 54 20 96 Room Air 01/11/17 04:37 36.6 79 18 136/74 93 Room Air Intake and Output- Last 8 Hour 01/11/17 Cumulative From/Thru 07:00 01/07/17 22:41 - 01/11/17 06:10 Intake Total 922 ml 9949 ml Output Total 650 ml 6800 ml Balance 272 ml 3149 ml Intake Oral 300 ml 4736 ml IV Total 622 ml 5213 ml Output Urine Total 650 ml 6800 ml # Bowel Movements 0 1 Result Diagram: 01/08/17 1730 01/11/17 0600 Assessment & Plan Plan From a urologic standpoint, he has done well. - His Cr has normalized - His hematuria is resolved. He will f/u Saturday for voiding trial in clinic. DC home with current louise. VTE Prophylaxis: SCDs Resuscitation Status: CPR: Attempt Resuscitation (daughter is ADM) Sapna Mendez MD Jan 11, 2017 09:02
--- NOTE | 2017-01-11 11:02 | PCM.PNNEPH ---
Subjective Date of Service Jan 11, 2017 Subjective Clear urine, no gross hematuria identified. Kidney function continued to improve. His serum sodium decreased to 128, his fluid intake was 2 L yesterday. Exam Vital Signs Vital Sign - Last Date Time Temp Pulse Resp B/P Pulse Ox O2 Delivery O2 Flow Rate FiO2 01/11/17 06:23 54 20 96 Room Air 01/11/17 04:37 36.6 136/74 Intake and Output 01/10/17 01/10/17 01/11/17 Cumulative From/Thru 15:00 23:00 07:00 01/07/17 22:41 - 01/11/17 06:10 Intake Total 2087 ml 922 ml 9949 ml Output Total 800 ml 650 ml 6800 ml Balance 1287 ml 272 ml 3149 ml Intake Oral 1200 ml 300 ml 4736 ml IV Total 887 ml 622 ml 5213 ml Output Urine Total 800 ml 650 ml 6800 ml # Bowel Movements 1 0 1 Exam General appearance: Awake, alert, oriented x3. No acute distress. HEENT: No pallor. No jaundice. No JVD. No lymphadenopathy. No thyroid enlargement. Heart: Regular rhythm. Normal S1, S2. Soft systolic murmur noted. Lungs: Decreased breaths sounds at the bases, no wheezing or rhonchi. Abdomen: Soft, obese, active bowel sounds. Bruises noted on the abdominal wall. Extremities: No edema, cyanosis, or clubbing of fingers. Status post left above-knee amputation. : louise cath clear urine. Lab and Diagnostics Result Diagram: 01/08/17 1730 01/11/17 0600 X-Rays, CTs and MRIs PROCEDURE: CT ABDOMEN AND PELVIS WITH CONTRAST ([id number]) INDICATIONS: abd distension pain post turp IMPRESSION: 1. Hyperdense collection with air in the bladder as described above. Given recent history of TURP, overall appearance is suggestive of hematoma and postoperative air. Recommend continued interval followup to document resolution and exclude presence of underlying mass lesion. 2. Cholelithiasis without imaging evidence of cholecystitis. 3. Questionable appearance of iso-/hyperdensity within the distal common bile duct as above. Small stone cannot be excluded. It is noted that the common bile duct is mildly prominent measuring approximately 10 mm. MRCP may be obtained as clinically indicated. 4. Diverticulosis. Dictated by: Jadyn Knox M.D. on 01/08/2017 at 11:28 Approved by: Jaydn Knox M.D. on 01/08/2017 at 11:50 PROCEDURE: US RENAL SONOGRAM INDICATIONS: acute renal failure TECHNIQUE: Real-time scanning was performed of the kidneys and bladder, with image documentation. COMPARISON: None. FINDINGS: Kidneys: Kidneys are normal in size. Right kidney measures 12.0 cm long; left kidney measures 11.8 cm long. Right renal cortical thickness is 0.8 cm; left renal cortical thickness is 1.0 cm. Renal cortical echotexture is normal. No hydronephrosis or nephrolithiasis. No suspicious solid mass lesions. There are bilateral renal cysts. The largest right renal cyst measures 5.6 cm in diameter and the largest left renal cyst measures 6.5 cm in diameter. Bladder: The bladder is decompressed and a Louise catheter is present. Neither ureteral jet was visualized. Miscellaneous: No free pelvic fluid. IMPRESSION: 1. No hydronephrosis. 2. Bilateral renal cysts. 3. Right cortical thinning suggesting medical renal disease. Dictated by: Amanda Mcgovern M.D. on 01/08/2017 at 18:02 Approved by: Amanda Mcgovern M.D. on 01/08/2017 at 18:05 Plan Impression 1. Acute kidney injury. Resolved. Urinary retention, IV Ketoralac, and lisinopril. 2. Hyponatremia. due to increase free water consumption. 3. Gross hematuria. Status post bedside clot evacuation, now on continuous bladder irrigation. 4. Status post transurethral resection of prostate on January 02, 2017. 5. Chronic atrial fibrillation. 6. Heart failure, reduced ejection fraction, improved ejection fraction based on echocardiogram in November 2016, EF 50-55%. 7. Hypertension. 8. 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 Plan: Repeat serum Na and osm. Hold anticoagulant. We will resume low dose lisinopril and torsemide. Renally dose medications. Likely to be discharged home today if Na not worsened. Cherry Posadas MD Jan 11, 2017 11:02
[2017-01-11 12:46] VITALS: BP 153/77; PULSE 79; RESP 18; O2SAT 94
[2017-01-11] MEDS: Albuterol 2.5 mg/3 mL Inhalation Solution NEB PRN (13:55)
[2017-01-11 13:56] VITALS: PULSE 77; RESP 26; O2SAT 99
--- NOTE | 2017-01-11 15:35 | NUR ---
Social Work: Readiness for Discharge/Multidisciplinary Rounds D: EMR reviewed. Pt is on day 3 of hospitalization. Pt discussed in multidisciplinary rounds and is anticipated to discharge home tomorrow with private home RN and attendant. T/C to pt's son Nick to confirm pt's readiness for discharge. Pt's son stated that he will be here at 1000 and requested an estimated time of discharge tomorrow. Pt's son stated he will provide pt transport home and if SW can provide 30 min notice, RN will be available when pt arrives home (RN lives 30 min away and is aware of pt's anticipated discharge). Pt's son requested discharge before 1400 if pt is medically stable - pt's son aware that pt may not discharge prior to 1400 and is agreeable. SW confirmed with pt's son that SW will discuss discharge requests during multidisciplinary rounds tomorrow. Pt's son agreeable. A: Pt to return home with home stager and private-pay RN. P: SW to update pt' son with discharge time after multidisciplinary rounds tomorrow. Pt's son to provide transport home. Pt's son will arrive at hospital at 1000 tomorrow. No other SW needs identified. No MD orders received. SW will continue to follow. AVILA Helton
--- NOTE | 2017-01-11 15:45 | NUR ---
Paez/mentation/resp Patient with 3 way Paez patent draining pinkish/nela uop today. Patient denies pain unless Paez catheter tubing moved. Patient up with Physical therapy and nursing staff. Patient is slightly impulsive and needs to be reminding to slow done some. Patient up with crutches ambulated in hallway . Patient with some disorientation noted so reoriented to surroundings. Patient did call son and tell him he was outside of hospital waiting at the bus stop for ride home which was not true. I spoke with son on the phone and reassured him his father was in his bed . patient noted to be sob with any exertion and some pursed lip breathing noted. Respiratory therapy provided a nebulizer treatment.
--- NOTE | 2017-01-11 16:24 | PCM.PNMED ---
Subjective Date of Service Jan 11, 2017 Subjective Patient notes that he has been eating better today and has had no nausea or vomiting. Exam Vital Signs Vital Sign - Last Date Time Temp Pulse Resp B/P Pulse Ox O2 Delivery O2 Flow Rate FiO2 01/11/17 13:56 77 26 99 Simple Mask 9.00 01/11/17 12:46 36.6 153/77 Intake and Output 01/10/17 01/10/17 01/11/17 Cumulative From/Thru 15:00 23:00 07:00 01/07/17 22:41 - 01/11/17 06:10 Intake Total 2087 ml 922 ml 9949 ml Output Total 800 ml 650 ml 6800 ml Balance 1287 ml 272 ml 3149 ml Intake Oral 1200 ml 300 ml 4736 ml IV Total 887 ml 622 ml 5213 ml Output Urine Total 800 ml 650 ml 6800 ml # Bowel Movements 1 0 1 Exam Constitutional: Elderly male in no acute distress Head: Normocephalic atraumatic Chest: Clear to auscultation Cor: Regular rate and rhythm S1-S2 Abdomen: Soft nontender bowel sounds present Extremities right leg no edema left has had amputation neuro: Alert and oriented 3 Lab and Diagnostics Laboratory Tests 72 Hours Test 01/08/17 17:30 01/09/17 06:30 01/10/17 05:40 01/11/17 06:00 Hemoglobin 11.0g/dL (13.8-17.2) Hematocrit 32.3% (41.0-50.0) Sodium Level 127mEq/L (134-144) 131mEq/L (134-144) 134mEq/L (134-144) 128mEq/L (134-144) Potassium Level 4.7mEq/L (3.5-5.2) 4.5mEq/L (3.5-5.2) 4.6mEq/L (3.5-5.2) 4.5mEq/L (3.5-5.2) Chloride Level 91mEq/L (97-108) 92mEq/L (97-108) 99mEq/L (97-108) 97mEq/L (97-108) Carbon Dioxide Level 21mmol/L (18-29) 23mmol/L (18-29) 22mmol/L (18-29) 20mmol/L (18-29) Blood Urea Nitrogen 38mg/dL (8-27) 36mg/dL (8-27) 23mg/dL (8-27) 19mg/dL (8- 27) Creatinine 2.24mg/dL (0.76-1.27) 1.89mg/dL (0.76-1.27) 1.30mg/dL (0.76-1.27) 1.11mg/dL (0.76-1.27) Estimat Glomerular Filtration Rate 30mL/min (>59) 36mL/min (>59) 56mL/min (>59) 67mL/min (>59) Glucose Level 116mg/dL (60-99) 120mg/dL (60-99) 112mg/dL (60-99) 102mg/dL (60-99) Uric Acid 9.9mg/dL (2.6-7.2) Calcium Level 8.2mg/dL (8.5-10.1) 8.2mg/dL (8.5-10.1) 8.0mg/dL (8.5-10.1) 8.1mg/dL (8.5-10.1) Phosphorus Level 4.3mg/dL (2.5-4.9) Magnesium Level 1.7mg/dL (1.6-2.6) Total Bilirubin 0.5mg/dL (0.0-1.2) Aspartate Amino Transf (AST/SGOT) 18U/L (0-50) Alanine Aminotransferase (ALT/SGPT) 16U/L (0-44) Alkaline Phosphatase 36U/L (25-160) Total Protein 5.9g/dL (6.4-8.4) Albumin 3.4g/dL (3.4-5.0) Test 01/11/17 11:40 Sodium Level 128mEq/L (134-144) Osmolality 278 (275-300) Result Diagram: 01/08/17 1730 01/11/17 1140 X-Rays, CTs and MRIs PROCEDURE: CT ABDOMEN AND PELVIS WITH CONTRAST (PNL-7102) INDICATIONS: abd distension pain post turp IMPRESSION: 1. Hyperdense collection with air in the bladder as described above. Given recent history of TURP, overall appearance is suggestive of hematoma and postoperative air. Recommend continued interval followup to document resolution and exclude presence of underlying mass lesion. 2. Cholelithiasis without imaging evidence of cholecystitis. 3. Questionable appearance of iso-/hyperdensity within the distal common bile duct as above. Small stone cannot be excluded. It is noted that the common bile duct is mildly prominent measuring approximately 10 mm. MRCP may be obtained as clinically indicated. 4. Diverticulosis. Dictated by: Jadyn Knox M.D. on 01/08/2017 at 11:28 Approved by: Jadyn Knox M.D. on 01/08/2017 at 11:50 PROCEDURE: US RENAL SONOGRAM INDICATIONS: acute renal failure TECHNIQUE: Real-time scanning was performed of the kidneys and bladder, with image documentation. COMPARISON: None. FINDINGS: Kidneys: Kidneys are normal in size. Right kidney measures 12.0 cm long; left kidney measures 11.8 cm long. Right renal cortical thickness is 0.8 cm; left renal cortical thickness is 1.0 cm. Renal cortical echotexture is normal. No hydronephrosis or nephrolithiasis. No suspicious solid mass lesions. There are bilateral renal cysts. The largest right renal cyst measures 5.6 cm in diameter and the largest left renal cyst measures 6.5 cm in diameter. Bladder: The bladder is decompressed and a Paez catheter is present. Neither ureteral jet was visualized. Miscellaneous: No free pelvic fluid. IMPRESSION: 1. No hydronephrosis. 2. Bilateral renal cysts. 3. Right cortical thinning suggesting medical renal disease. Dictated by: Amanda Mcgovern M.D. on 01/08/2017 at 18:02 Approved by: Amanda Mcgovern M.D. on 01/08/2017 at 18:05 Assessment & Plan Nick is a 86-year-old white male past medical history of atrial fibrillation for which she was on Coumadin, SDH, hypertension, HFPEF, AICD placement is presenting after suffering from inability to urinate as a transfer from [facility]. #Bladder obstruction status post blood clot aspiration , resolved -- Dr. Cano was in the room draining the clot by aspirating the blood clot and irrigation. -- She does not want any anticoagulation until patient follows up with her next Saturday for ureteral catheter removal -- Patient has undergone TURP on 01/02/2017 and she feels that his procedure went well. -- Continue pain control as needed -Urine is clearing will be discharged with Paez catheter in place possible discharge tomorrow #Abdominal pain resolved on admission -- Patient did not have abdominal pain on physical examination #Hyponatremia present on admission active -- Nephrology is consulted due to diluted urine issue, we appreciate their recommendations -Improving -Sodium dipped a little bit today we will go ahead and reinitiate his torsemide by mouth #Acute kidney injury present on admission active -- Likely due to bladder obstruction vs home medications torsemide, lisinopril , ketorolac at OSH, possible dehydration from before causing prerenal azotemia --- Kidney ultrasound is ordered and no significant abnormalities seen -- Nephrology is consulted , we appreciate their recommendations #Nausea, acute, persistent, present on admission, resolved -We will go ahead and check CT of abdomen without contrast to further evaluate #Atrial fibrillation chronic presumed stable -- Discontinued patient's at home Coumadin -- Dr. Cano recommends holding all anticoagulation till she sees her for f/ u #constipation, present on admission ongoing -- Senna, MiraLAX when necessary -- Add Colace twice a day -Encourage moving about #Chronic ischemic cardiomyopathy active -- Continue home medications -Per previous note patient had an echocardiogram which showed EF of 50-55% which was done 12/27/2016 with mild to moderate MR and TR 31 mmHg pulmonary pressures. CODE STATUS: Patient states he is a full code ADM: Daughter Patient is admitted under Inpatient status with expected length of stay greater than 2 midnights due to severity of presenting symptoms, risk of adverse event, and complexity of treatment plan. VTE Prophylaxis: SCDs Resuscitation Status: CPR: Attempt Resuscitation (daughter is ADM) Time spent 20 minute Laya Truong MD Jan 11, 2017 16:24
[2017-01-11 21:07] VITALS: BP 134/63; PULSE 79; RESP 18; O2SAT 95
--- NOTE | 2017-01-12 02:44 | NUR ---
Mentation/Activity Patient A&O to self only this shift. Calling out intermittently throughout the night. Remains pleasant and cooperative with care. Easily redirected. Patient impulsive and standing up without calling for assistance. Unsteady on feet this shift. Lolo alarm in place for safety. Denies any pain or discomfort when asked. FELDT score= 0.
[2017-01-12 05:52] VITALS: BP 149/66; PULSE 80; RESP 20; O2SAT 93
[2017-01-12] MEDS: Pantoprazole 20 mg ER24 Tablet PO SCH (08:07)
[2017-01-12] MEDS: Tolterodine ER 4 mg ER24 Capsule PO SCH (08:08)
[2017-01-12] MEDS ORDERED: TOLT4CAP13 PO (09:24)
[2017-01-12] MEDS ORDERED: FINA5TAB9 PO (09:24)
[2017-01-12] MEDS: Albuterol 2.5 mg/3 mL Inhalation Solution NEB PRN (09:31)
[2017-01-12 09:32] VITALS: PULSE 77; RESP 26; O2SAT 95
--- NOTE | 2017-01-12 10:14 | PCM.DIMED ---
Discharge Instructions Date of Service Jan 12, 2017 Dates of Hospitalization Jan 08, 2017 at 04:49 Discharge Diagnosis Discharge Diagnosis R obstruction secondary to clot and had procedure to evacuate this Diet Discharge Diet: Heart Healthy Activity Discharge Activity: Other (progress as tolerated) Call your provider Call your provider for: Fever or Chills, Shortness of breath, Bleeding, Chest pain, Vomitting, Excessive diarrhea, Weakness (unilateral) Laya Truong MD Jan 12, 2017 10:14
--- NOTE | 2017-01-12 10:45 | NUR ---
Social Work: Discharge/Multidisciplinary Rounds D: EMR reviewed. Pt is on day 4 of hospitalization. Pt discussed in multidisciplinary rounds and is medically stable for discharge home today with private home RN and attendant. MD placed order for HH RN - private pay RN will stop working in 5 days and pt will need HH RN. SW met with pt and family at bedside to discuss MD recommendations. Pt and family agreeable to HH. SW provided choice list. Pt and family selected [facility]. T/C to Dottie at [facility] to place referral. SW provided access. Dottie confirmed [facility] can open with pt tomorrow. F2F completed and Dottie stated he will retrieve F2F at 1400 today. SW updated pt and family - all agreeable to discharge plan. SW confirmed that pt is ready for discharge with RN and pt's son. Son to transport home via POV. A: Pt for whom RN is medically necessary. P: Pt to discharge home today with son to transport via POV. DOUG confirmed that [facility] will open with pt tomorrow. SW updated pt and family on discharge plan. All updated and agreeable to plan. No other needs identified at this time. RN updated on pt's readiness for discharge and HH has been set-up for pt. AVILA Helton
--- NOTE | 2017-01-12 11:29 | NUR ---
DISCHARGE Reviewed patient discharge information with sonNick. And then again with the patient himself. Reviewed proper louise catheter care and instructions to make follow up appointment with urologist on saturday or saturday. Patient did not want a leg bag for louise catheter. IV removed from left AC and placed dressing. Patient was assisted with getting dressed and taken outside to son's vehicle in wheelchair. Left with all patient belongings. [facility] to follow up with patient tomorrow.
--- NOTE | 2017-01-12 16:27 | PCM.DC.MED ---
Discharge Summary Date of Service Jan 12, 2017 Dates of Hospitalization Date of Hospital Admission Jan 08, 2017 at 04:49 Date of Discharge: Jan 12, 2017 Providers: Admitting Physician: Omar Avila MD Primary Care Physician: Haile Solis MD Attending Physician: Laya Truong MD Diagnosis at Time of Discharge Diagnosis at Time of Discharge R obstruction secondary to clot and had procedure to evacuate this Consultations Urology Procedures XRay, CTs & MRIs PROCEDURE: CT ABDOMEN AND PELVIS WITH CONTRAST ([id number]) INDICATIONS: abd distension pain post turp IMPRESSION: 1. Hyperdense collection with air in the bladder as described above. Given recent history of TURP, overall appearance is suggestive of hematoma and postoperative air. Recommend continued interval followup to document resolution and exclude presence of underlying mass lesion. 2. Cholelithiasis without imaging evidence of cholecystitis. 3. Questionable appearance of iso-/hyperdensity within the distal common bile duct as above. Small stone cannot be excluded. It is noted that the common bile duct is mildly prominent measuring approximately 10 mm. MRCP may be obtained as clinically indicated. 4. Diverticulosis. Dictated by: Jadyn Knox M.D. on 01/08/2017 at 11:28 Approved by: Jadyn Knox M.D. on 01/08/2017 at 11:50 PROCEDURE: US RENAL SONOGRAM INDICATIONS: acute renal failure TECHNIQUE: Real-time scanning was performed of the kidneys and bladder, with image documentation. COMPARISON: None. FINDINGS: Kidneys: Kidneys are normal in size. Right kidney measures 12.0 cm long; left kidney measures 11.8 cm long. Right renal cortical thickness is 0.8 cm; left renal cortical thickness is 1.0 cm. Renal cortical echotexture is normal. No hydronephrosis or nephrolithiasis. No suspicious solid mass lesions. There are bilateral renal cysts. The largest right renal cyst measures 5.6 cm in diameter and the largest left renal cyst measures 6.5 cm in diameter. Bladder: The bladder is decompressed and a Paez catheter is present. Neither ureteral jet was visualized. Miscellaneous: No free pelvic fluid. IMPRESSION: 1. No hydronephrosis. 2. Bilateral renal cysts. 3. Right cortical thinning suggesting medical renal disease. Dictated by: Amanda Mcgovern M.D. on 01/08/2017 at 18:02 Approved by: Amanda Mcgovern M.D. on 01/08/2017 at 18:05 Brief History This is a 86 yo plesanat gentleman with PMH of hypertension, history of smoking for more than 50 years, HfPEF, severe LV dysfunction most likely nonischemic cardiomyopathy, chronic A. fib, history of left atrial appendage clot which got resolved on subsequent CLARIBEL, status post BIV AICD by Dr. 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 He was seen at [facility] yesterday and was seen by Dr. Gupta. He recently underwent a TURP procedure on 01/02/[address] Cano and his coumadin was subsequently restarted with enoxaparin bridging. He had a CT scan abdominopelvic in [facility] that showed diverticulosis and cholelithiasis, and hematoma. His lab work showed RM=281 K=5.1 BUN 27 Cr 1.4 ( unknown baseline) WBC 12.9 GFR 51.5 INR 1.1. He was given IV ketorolac and morphine at OSH. A CT abdomino/pelvic performed at [facility] showed large blood clot in the urinary bladder, cholelithiasis, questionable cholelithiasis, diverticulosis. Review of next gen records from Dr. Cano's office shows an Echo from , 50-55% EF, Mild to moderate MR, AR, TR, 31 mmHg pulmonary pressures. Patient states he has just seen his law enforcement officer Dr. Villanueva and he was told he was doing well. He currently has no nausea or vomiting, no abdominal pain. Asking to eat something as his hungry. He does endorse some constipation. Denies shortness of breath, headaches, recent fevers and chills, recent weight gain or weight loss. Patient's daughter is present in the room and provided some of the history. She intends to send patient back to his independent living setting with home care help if possible Hospital Course Nick is a 86-year-old white male past medical history of atrial fibrillation for which she was on Coumadin, SDH, hypertension, HFPEF, AICD placement is presenting after suffering from inability to urinate as a transfer from [facility]. #Bladder obstruction status post blood clot aspiration , resolved -- Dr. Cano was in the room draining the clot by aspirating the blood clot and irrigation. -- She does not want any anticoagulation until patient follows up with her next Saturday for ureteral catheter removal -- Patient has undergone TURP on 01/02/2017 and she feels that his procedure went well. -- Continue pain control as needed -Urine is clearing will be discharged with Paez catheter in place and to follow -up with urology on Saturday -We did arrange for patient to go back home with home health care RN consult for Paez management #Hyponatremia present on admission active -- Nephrology is consulted due to diluted urine issue, we appreciate their recommendations -Improving -Sodium dipped a little bit several days prior to discharge but his Demadex was restarted as per nephrology #Acute kidney injury present on admission active -- Likely due to bladder obstruction vs home medications torsemide, lisinopril , ketorolac at OSH, possible dehydration from before causing prerenal azotemia --- Kidney ultrasound is ordered and no significant abnormalities seen -- Nephrology is consulted , we appreciate their recommendations -Marked improvement in renal function prior to discharge #Nausea, acute, persistent, present on admission, resolved -Resolved prior to discharge #Atrial fibrillation chronic presumed stable -- Discontinued patient's at home Coumadin -- Dr. Cano recommends holding all anticoagulation till she sees her for f/ u #constipation, present on admission ongoing -- Senna, MiraLAX when necessary -- Add Colace twice a day -Encourage moving about #Chronic ischemic cardiomyopathy active -- Continue home medications -Per previous note patient had an echocardiogram which showed EF of 50-55% which was done 12/27/2016 with mild to moderate MR and TR 31 mmHg pulmonary pressures. CODE STATUS: Patient states he is a full code ADM: Daughter Exam Vital Signs (Last) Date Time Temp Pulse Resp B/P Pulse Ox O2 Delivery O2 Flow Rate FiO2 01/12/17 09:32 77 26 95 Room Air 01/12/17 05:52 36.8 149/66 01/11/17 13:56 9.00 Exam Constitutional: Elderly male in no acute distress Head: Normocephalic atraumatic Chest: Clear to auscultation Cor: Regular rate and rhythm S1-S2 Abdomen: Soft nontender bowel sounds present Extremities: No pedal edema Psych: Mood and affect are appropriate Skin: No rashes Neuro: Alert and oriented 3, motor strength is intact bilaterally Test 01/08/17 09:00 01/08/17 12:11 01/08/17 17:30 01/10/17 05:40 White Blood Count 10.8th/mm3 (3.8-10.1) Red Blood Count 3.85mil/mm3 (4.40-5.80) Mean Corpuscular Volume 90.1fL (81-100) Mean Corpuscular Hemoglobin 30.6pg (27.0-35.0) Mean Corpuscular Hemoglobin Concent 34.0% (32.0-37.0) Red Cell Distribution Width 14.6% (12.3-15.4) Platelet Count 221bil/L (150-400) Lipase 44U/L (13-60) Thyroid Stimulating Hormone (TSH) 1.910uIU/mL (0.450-4.500) Cortisol 12.3ug/dL (.) Hemoglobin 11.0g/dL (13.8-17.2) Hematocrit 32.3% (41.0-50.0) Uric Acid 9.9mg/dL (2.6-7.2) Phosphorus Level 4.3mg/dL (2.5-4.9) Magnesium Level 1.7mg/dL (1.6-2.6) Total Bilirubin 0.5mg/dL (0.0-1.2) Aspartate Amino Transf (AST/SGOT) 18U/L (0-50) Alanine Aminotransferase (ALT/SGPT) 16U/L (0-44) Alkaline Phosphatase 36U/L (25-160) Total Protein 5.9g/dL (6.4-8.4) Albumin 3.4g/dL (3.4-5.0) Test 01/11/17 11:40 01/12/17 07:40 Osmolality 278 (275-300) Sodium Level 129mEq/L (134-144) Potassium Level 4.6mEq/L (3.5-5.2) Chloride Level 95mEq/L (97-108) Carbon Dioxide Level 22mmol/L (18-29) Blood Urea Nitrogen 21mg/dL (8-27) Creatinine 1.14mg/dL (0.76-1.27) Estimat Glomerular Filtration Rate 65mL/min (>59) Glucose Level 114mg/dL (60-99) Calcium Level 9.0mg/dL (8.5-10.1) Discharge Medications Discharge Medications Carvedilol (Carvedilol) 25 Mg Tablet 25 MG PO BID (Reported) Digoxin (Lanoxin) 0.125 Mg Tablet 0.125 MG PO DAILY (Reported) Finasteride (Finasteride) 5 Mg Tablet 5 MG PO DAILY Prescribed by: LAYA TRUONG MD Lisinopril (Lisinopril) 2.5 Mg Tablet 2.5 MG PO BID (Reported) Tolterodine Tartrate ER (Tolterodine Tartrate ER) 4 Mg Capsule 4 MG PO MORNING Prescribed by: LAYA TRUONG MD Torsemide (Torsemide) 20 Mg Tablet 20 MG PO DAILY (Reported) As needed Albuterol HFA (Proair HFA) 8.5 Gm Hfa.aer.ad 2 PUFFS INHALATION Q4H PRN PRN For Shortness of Breath (Reported) Docusate Sodium (Colace) 100 Mg Capsule 100 MG PO BID PRN PRN For Constipation ( Reported) Followup Plan Disposition: Home with home health care RN consult Follow-up plan Patient is to follow-up with urology on Saturday -Patient is to follow-up with his primary care provider Dr. Haile Solis in approximately one week Discharge Diet: Heart Healthy Discharge Activity: Other (progress as tolerated) Time spent 60 minutes copies to: Haile Solis MD, Cheryl A MD Jan 12, 2017 16:27
== END 2017-01-12 11:06 | disposition home health service (06) | DRG 699 ==
LOC: SED 22:33 → EDUNIT# 22:33 → EDBD 22:33 → OSC 01-08 04:49
PROVIDERS: ADMIT Hospitalist; ATTEND Specialist
PROC: 0T9B8ZZ Drainage of Bladder, Via Natural or Artificial Opening Endoscopic (ICD-10-PCS; principal; 2017-01-08)
DX: N32.0 Bladder-neck obstruction (principal); I50.32 Chronic diastolic (congestive) heart failure; N17.9 Acute kidney failure, unspecified; E87.1 Hypo-osmolality and hyponatremia; I48.2 Chronic atrial fibrillation; K59.00 Constipation, unspecified; Z96.651 Presence of right artificial knee joint; I25.5 Ischemic cardiomyopathy; Z79.01 Long term (current) use of anticoagulants; Z88.0 Allergy status to penicillin; Z79.51 Long term (current) use of inhaled steroids; Z95.810 Presence of automatic (implantable) cardiac defibrillator; Z87.891 Personal history of nicotine dependence; Z89.612 Acquired absence of left leg above knee